=== PATIENT | female | born 1975 | race Caucasian/White ===

== ENCOUNTER 2024-12-10 13:00 | Outpatient (AMB) | payer OTHER, SELFPAY ==
--- OUTSIDE RECORDS SUMMARY | 2024-12-10 13:02 | XMS_ITS | Patient Health Record ---
Author Organization [facility] Address [address] [place] [address] Support Name Relationship Address Phone TAMEKA LOZA Guarantor Unknown [phone] Reason For Referral No Information Medications Medication SIG (Take, Route, Fr equency, Duration) Notes Start Date End Date Status Claritin 10 MG 1 ORAL daily for -3 Johnnie-MJ 03/09/2012 Active Kariva 0.15-0.02/0.01 1 ORAL daily for -3 Johnnie-MJ 03/09/20 12 Active Multivitamins 1 ORAL daily for -3 Johnnie-MJ 03/09/2012 Active Problems Problem Type SNOMED Code ICD Code Onset Dates Problem Status W/U Status Risk Notes Problem Hyperlipidemia (75605681) Other and unspecified hyperlipidemia (272.4) Active confirmed Major Problem Benign essential hypertension (3621309) Essential hypertension, benign (401.1) Active confirmed Major Problem Occlusion of cerebral artery (disorder) (80055495) Unspecified cerebral artery occlusion without mention of cerebral infarction (434.90) Active confirmed Major Problem Abnormal vaginal bleeding (735561910) Other disorder of menstruation and other abnormal bleeding from female genital tract (626.8) Active confirmed Diag Problem Menopausal symptom (65022014) Symptomatic menopausal or female climacteric states (627.2) Active confirmed Major Problem Gynecological examination normal (183663215201733) Routine gynecological examination (V72.31) Active confirmed Major Problem Screening for malignant neoplasm of colon (423965941) Special screening for malignant neoplasms, colon (V76.51) Active confirmed Major Plan Of Treatment No Information Insurance Providers Payer Name Payer Address Payer Phone Subscriber Number Group Number Insured Name Patient Relationship to Insured Coverage Start Date Coverage End Date [facility] [address] [place] [address] [id number] RICKIE LOZA Spouse - patient is the spouse of the insured 2
--- NOTE | 2024-12-10 13:15 | MHC.PC.OV ---
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 Intake Note: new pt established care Combination Welder Required: No Is last menstrual period known: Yes Last menstrual period: 12/10/24 Post menopausal: No Patient : No Allergies mepivacaine Allergy (Intermediate, Verified 12/10/24 13:27) Facial Swelling Medication List - Last Reconciled 12/10/24 by Kelby Robin CNP No Known Home Meds Tobacco use date assessed: 12/10/24 Dental Screening Dental Screen Date: 12/10/24 Did you have a dental visit in the last 12 months?: Yes Did you have a dental problem in the last 6 months where you did not have access to dental care?: No Was dental information given to patient?: No HPI HPI Comments History of Present Illness Details 49-year-old female presents to establish care Prior PCP? - Dr. Sorto, [facility], [place], [place] Last office visit/CPE/labs - Over 2 years ago Acute issue(s) - Elevated blood pressure. Notes history of preeclampsia and elevated BP reads at providers' offices. Does not recall her last recorded elevated blood pressure Medications - Albuterol inhaler 4-6 hours PRN - Epi pen Allergy - White face hornet (reaction - swelling, itching) Past Medical History - Asthma -GERD - Sinusitis - Preeclampsia (last 1999) Surgical History - Cholecystectomy Family History - Dad: Asthma, cardiovascular disease, mental illness, hypertension, substance abuse - Mom: Hypertension - MGM: Diabetes - PGM: Diabetes - PGF: Cardiovascular disease Social History - Nonsmoker. Does not vape. Does not drink alcohol. Denies recreational drug use - Has been making healthy dietary choices. Exercises routinely. Generally sleep well Health maintenance - Last eye exam was several years ago: Refer to Ophthalmology for routine eye exam - Last dental visit was 6 months ago - Last tetanus vaccine was probably in 2020. Old medical record not available. Will review record once received and update as needed - Has not been vaccinated for the flu this season; declines vaccination - She has not been vaccinated for pneumonia or shingles. Recommend pneumonia and shingles vaccines. She may get the vaccines from her local pharmacy - Last pap smear test was probably [address] Parker, CONVENTION SERVICES MANAGER, [place]. Requests a new CONVENTION SERVICES MANAGER. Referred [place] [facility] [place] for a pap smear test - Last mammogram was probably 3 years ago with with her CONVENTION SERVICES MANAGER. Mammogram ordered - She has never had a colonoscopy. She prefers Cologuard at this time due to feeling ill for a few days following anesthesia. Cologuard order [facility] Medical History (Updated 12/10/24 @ 15:12 by Kelby Robin CNP) Pre-eclampsia GERD (gastroesophageal reflux disease) Sinusitis Asthma Surgical History (Updated 12/10/24 @ 13:27 by Israel Finley CMA) History of cholecystectomy Family History (Updated 12/10/24 @ 13:31 by Israel Finley CMA) Father Substance abuse FH: mental illness Asthma High blood pressure Cardiovascular disease Psychiatric disorder Mother High blood pressure Maternal Grandmother Diabetes Paternal Grandmother Diabetes Paternal Grandfather Cardiovascular disease Social History Housing: House Patient Tobacco Use Status: Never used Tobacco e-Cigarette/Vaping Use: Never Used Second Hand Smoke Exposure: Yes service: No Current occupational status: employed 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 1. Little interest or pleasure in doing things: not at all 2. Feeling down, depressed, or hopeless: not at all 3. Trouble falling or staying asleep, or sleeping too much: not at all 4. Feeling tired or having little energy: not at all 5. Poor appetite or overeating: not at all 6. Feeling bad about yourself - or that you are a failure or have let yourself or your family down: not at all 7. Trouble concentrating on things, such as reading the newspaper or watching television: not at all 8. Moving or speaking so slowly that other people could have noticed. Or the opposite - being so fidgety or restless that you have been moving around a lot more than usual: not at all 9. Thoughts that you would be better off or of hurting yourself in some way: not at all Total score: 0 Depression Screening Interpretation: Negative Depression Screening Done: Yes Source: Developed by Drs. Sascha Felix, Morelia Aquino, Dat Madden and colleagues, with an educational nitin from [employer]. Thrive Questionnaire Date Thrive assessed: 12/07/24 I am a: Patient What is your living situation today?: I have a steady place to live Within the past 12 months, did the food you bought not last and you didn't have the money to get more?: Never true Within the past 12 months, did you worry whether your food would run out before you got money to buy more?: Never true Do you have trouble paying for medicines?: No Do you have trouble getting transportation to medical appointments?: No Do you have trouble paying your heating and electricity bill?: No Do you have trouble taking care of your child, family member or friend?: No Do you have trouble with day-to-day activities such as bathing, preparing meals, shopping, managing finances, etc.?: No Are you currently unemployed and looking for a job?: No Are you interested in more education?: No Please select the resources that you would like help with: None Currently or been in a relationship where the following occur: No concerns reported THRIVE Score: 0 AUDIT C Alcohol Use Questionnaire (AUDIT-C) 1. How often do you have a drink containing alcohol?: Never 3. How often do you have six or more drinks on one occasion?: Never Total Score: 0 Score Reviewed/Action Taken: Yes STEFAN-7 AMB Questionnaire STEFAN-7 Date STEFAN - 7 assessed: 12/10/24 Feeling nervous, anxious, or on edge: 0 = Not at all Not being able to stop or control worryin = Not at all Worrying too much about different things: 0 = Not at all Trouble relaxin = Not at all Being so restless that it is hard to sit still: 0 = Not at all Becoming easily annoyed or irritable: 0 = Not at all Feeling afraid as if something awful might happen: 0 = Not at all Total STEFAN-7 score (0-4 normal; 5-9 mild; 10-14 moderate; 15-21 severe): 0 Source: Developed by Drs. Sascha Felix, Morelia Aquino, Dat Madden and colleagues, with an educational nitin from [employer]. STEFAN-7 Assessment Billing STEFAN-7 Assessment Tool: STEFAN-7 Assessment 19002 ACT Questionnaire In the past 4 weeks, how much of the time did your asthma keep you from getting as much done at work, school or at home?: None of the time During the past 4 weeks, how often have you had shortness of breath?: Not at all During the past 4 weeks, how often did your asthma symptoms wake you up at night or earlier than usual in the morning?: Not at all During the past 4 weeks, how often have you had to use your rescue inhaler or nebulizer medication?: Not at all How would you rate your asthma control during the past 4 weeks?: Well controlled ACT Interpretation: Negative Score: 24 Review of Systems Const Details: Denies chills, Denies fatigue, Denies fever(s), Denies headache(s) and Denies weakness HEENT Denies change in vision, Denies dizziness, Denies headache(s), Denies hearing loss, Denies nasal congestion, Denies sinus pain, Denies sinus pressure and Denies sore throat Card Denies chest pain, Denies lightheadedness, Denies dyspnea and Denies other (palpitations) Resp Denies cough, Denies dyspnea and Denies wheezing GI Denies abdominal pain, Denies melena, Denies hematochezia, Denies change in bowel habits, Denies dyspepsia and Denies nausea Denies hematuria and Denies dysuria Musc Denies abnormal gait, Denies myalgias, Denies arthralgias, Denies numbness and Denies tingling Skin/Breast Denies rash, Denies unusual bruising and Denies wounds Neuro Denies abnormal gait, Denies dizziness, Denies headache(s), Denies memory loss, Denies numbness, Denies Sensory deficit (Neuro), Denies tingling and Denies weakness Psych Denies anxiety, Denies depression and Denies memory loss Endo Denies cold intolerance, Denies fatigue, Denies heat intolerance, Denies polydipsia and Denies polyuria Isrrael/Lymph Denies easy bleeding and Denies easy bruising Aller/Immun Denies wheezing Physical exam (Primary Care) Vital Signs: Last Vital Signs Temp 98.8 F 12/10/24 13:33 Pulse 108 H 12/10/24 14:21 Resp 16 12/10/24 13:33 BP 150/80 H 12/10/24 13:33 Pulse Ox 99 12/10/24 13:33 Oxygen Delivery Method Room Air 12/10/24 13:33 BMI result Body Mass Index 27.0 Tobacco/Smoking Status: Tobacco use Status Tobacco use date assessed 12/10/24 12/10/24 13:29 Patient Tobacco Use Status Never used Tobacco 12/10/24 13:29 e-Cigarette/Vaping Use Never Used 12/10/24 13:29 PHQ-9: PHQ-9 Score PHQ-9: Total score 0 12/10/24 14:45 Depression Screening Interpretation: Negative Thrive Assessment: Date of Thrive Assessment Date Thrive assessed 12/07/24 12/10/24 13:17 Currently or been in a relationship where the following occur: No concerns reported Const Other: General: no acute distress, well developed, alert and awake Nutritional Appearance: well nourished Orientation/consciousness: patient oriented x3 HENMT Head: Yes normocephalic and Yes atraumatic Ears: hearing grossly normal bilaterally and TM's normal bilaterally General nose exam: Normal external nose present and Normal nares present Mouth: Normal oral and palatal mucosa present and moist mucous membranes Teeth and gingiva: dentition normal Throat: Yes oropharynx normal Eyes Pupils: Equal, round and reactive pupils present and Pupil accommodation reflex normal EOM: EOMs intact bilaterally Neck Neck: Yes normal visual inspection, Yes no lymphadenopathy and Yes trachea midline Thyroid: Thyroid normal Carotids: no bruits Lymphatic: no lymphadenopathy noted Chest Chest palpation & inspection: normal inspection of the chest Resp Effort & Inspection: normal respiratory effort Auscultation: clear to auscultation bilaterally Cardio Rate: regular rate Rhythm: regular rhythm Heart sounds: S1 normal heart sound present, S2 normal heart sound present, no gallops, no murmurs and no rubs Bruits: no abdominal aortic bruits and no carotid bruits GI Palpation (GI): No Abdominal aortic bruit present, Soft to palpation, nontender, No hepatosplenomegaly present and No Rebound tenderness present Auscultation: normal bowel sounds General: Yes no CVA tenderness Back/Spine/Pelvis Back: no CVA tenderness Cervical Spine: cervical ROM normal and No Cervical spine tenderness Thoracic/Lumbar Spine: thoraco-lumbar ROM normal, No pain with thoraco-lumbar ROM, No thoracic spinal tenderness and No lumbar spinal tenderness Skin General: warm and dry. Normal skin color. Normal skin turgor Lesions: no lesions Rashes: no rashes Trauma: no lacerations or abrasions Wounds: no wounds Nails: normal Neuro General: patient oriented x3, gait normal and CN's II-XI intact bilaterally Cranial nerves: Yes Equal, round and reactive pupils present Cognition (Neuro): normal cognition Gait exam (Neuro): Normal gait present Motor exam (neuro): 5/5 motor strength present throughout Sensory Exam: No Sensory deficit (Neuro) Deep tendon reflexes (DTR's): Right patellar reflex intensity grade: 2+ and Left patellar reflex intensity grade: 2+ Extrem General: Yes normal to inspection, No edema and No calf tenderness Psych Appearance: grossly normal Affect: normal affect Attitude: cooperative Thought process: Normal thought process present Coding Level of Care Code New Pt Level 4 (57283) New Pt Prev Care 40-64y(61705) Diagnoses Normal physical examination, routine Z00.00 Hypertension I10 Asthma J45.909 Colon cancer screening Z12.11 Pap smear for cervical cancer screening Z12.4 Breast cancer screening by mammogram Z12.31 Vaccine counseling Z71.85 Eye exam, routine Z01.00 Laboratory tests ordered as part of a complete physical exam (CPE) Z00.00 Additional Codes Asthma Control Questionnaire - ACT Interpretation: Negative ([id number]) STEFAN-7 Assessment Billing - STEFAN-7 Assessment Tool: STEFAN-7 Assessment 63025 ([id number]) Assessment & Plan Assessment & Plan (1) Normal physical examination, routine: Code(s): Z00.00 - Encounter for general adult medical examination without abnormal findings Category: Medical Plan: No significant functional limitation noted. Healthy diet and routine exercise encouraged. Advised to get lab work done and follow-up in a week for hypertension and labs review. Return sooner with symptoms or concerns. Verbalized understanding and agreed with treatment plan. (2) Hypertension: Code(s): I10 - Essential (primary) hypertension Category: Medical Plan: Resting blood pressure is 150/80, above goal of less than 140/90. Heart rate is 108. She has history of preeclampsia. Her blood pressure is usually elevated at doctor's office. Her mom, dad, and sister have history of hypertension. Will start metoprolol 25 mg daily to target her blood pressure and heart rate; advised to take as prescribed. Instructed on the risks, benefits, and potential adverse reactions of the medication. Reports lightheaded/dizziness which has symptoms of hypotension. Also reports or go to the ED for symptoms of hypertension such as headache, visual disturbances or chest pain. Follow-up in 1 week or sooner with symptoms or concerns. Verbalized understanding and agreed with treatment plan. (3) Asthma: Code(s): J45.909 - Unspecified asthma, uncomplicated Category: Medical Plan: Well controlled asthma. ACT score is 24. Was new current treatment regimen. (4) Colon cancer screening: Code(s): Z12.11 - Encounter for screening for malignant neoplasm of colon Category: Medical Plan: She has never had a colonoscopy. She prefers a Cologuard test versus colonoscopy at this time due to illness following anesthesia. Cologuard test ordered. (5) Pap smear for cervical cancer screening: Code(s): Z12.4 - Encounter for screening for malignant neoplasm of cervix Category: Medical Plan: Last Pap smear test was 3 years ago. Referred to [facility] grapple skidder operator with noted preference for a female provider. (6) Breast cancer screening by mammogram: Code(s): Z12.31 - Encounter for screening mammogram for malignant neoplasm of breast Category: Medical Plan: Last mammogram was 3 years ago. Mammogram ordered. (7) Vaccine counseling: Code(s): Z71.85 - Encounter for immunization safety counseling Category: Medical Plan: She has not been vaccinated for pneumonia or shingles. Recommend pneumonia and shingles vaccines. She may get the vaccines from her local pharmacy. Verbalized understanding and agreed with the plan. (8) Eye exam, routine: Code(s): Z01.00 - Encounter for examination of eyes and vision without abnormal findings Category: Medical Plan: Last eye exam was several years ago. Refer to Ophthalmology for routine eye exam. (9) Laboratory tests ordered as part of a complete physical exam (CPE): Code(s): Z00.00 - Encounter for general adult medical examination without abnormal findings Category: Medical Plan: Fasting labs ordered as part of a complete physical exam. Advised to fast for at least 10 hours before getting labs drawn. May drink water Verbalized understanding and agreed with treatment plan. Orders: Orders Lipid Panel Today Z00.00 - Encounter for general adult medical examination without abnormal findings Microalbumin, Random (w Creat) Today Z00.00 - Encounter for general adult medical examination without abnormal findings Complete Blood Count Auto Diff Today Z00.00 - Encounter for general adult medical examination without abnormal findings Comprehensive [place]. Panel Fast Today Z00.00 - Encounter for general adult medical examination without abnormal findings TSH reflex Free T4 Today Z00.00 - Encounter for general adult medical examination without abnormal findings UA CC w/rflx Micro + Cult Today Z00.00 - Encounter for general adult medical examination without abnormal findings Referrals Ophthalmology Referral Z01.00 - Encounter for examination of eyes and vision without abnormal findings Cologuard Test Z12.11 - Encounter for screening for malignant neoplasm of colon, Z12.12 - Encounter for screening for malignant neoplasm of rectum SCHOOL SUPERINTENDENT Referral Z12.4 - Encounter for screening for malignant neoplasm of cervix Medications: New metoprolol tartrate 25 mg PO DAILY 30 days 30 tabs 3RF albuterol sulfate 90 mcg/actuation 2 puffs inhalation Q4-6H PRN 8.5 grams 3RF shortness of breath or wheezing epinephrine (EpiPen) May repeat dose x1 after 5-15 minutes. Go to the ED after first use. 0.3 mg (0.3 mL) IM Q10M PRN 2 ea 2RF anaphylaxis
[2024-12-10 13:33] VITALS: BP 150/80; PULSE 97; RESP 16; TEMP 37.1; O2SAT 99; BMI 27.0
[2024-12-10 14:21] VITALS: PULSE 108
== END 2024-12-10 14:17 | disposition home or self-care (01) ==
PROVIDERS: PCP Nurse Practitioner Family; Visit Provider Nurse Practitioner Family
DX: Z00.00 Encounter for general adult medical examination without abnormal findings (principal); I10 Essential (primary) hypertension; J45.909 Unspecified asthma, uncomplicated; Z12.11 Encounter for screening for malignant neoplasm of colon; Z12.31 Encounter for screening mammogram for malignant neoplasm of breast; Z71.85 Encounter for immunization safety counseling

== ENCOUNTER → 2024-12-10 13:00 | Outpatient (BNVA) | payer OTHER, SELFPAY | PROVIDERS: PCP Nurse Practitioner Family; Visit Provider Nurse Practitioner Family | DX: Z00.00 Encounter for general adult medical examination without abnormal findings (principal); I10 Essential (primary) hypertension; J45.909 Unspecified asthma, uncomplicated; Z71.85 Encounter for immunization safety counseling | CPT/HCPCS: 96127; 96160 ==

== ENCOUNTER 2024-12-13 08:01 | Outpatient (REF) | payer OTHER, SELFPAY ==
--- OUTSIDE RECORDS SUMMARY | 2024-12-13 08:05 | XMS_ITS | Patient Health Record ---
Author Organization [facility] Address [address] [place] [address] Support Name Relationship Address Phone TAMEKA LOZA Guarantor Unknown [phone] Reason For Referral No Information Medications Medication [...] Status W/U Status Risk Notes Problem Hyperlipidemia (86469917) Other and unspecified hyperlipidemia (272.4) Active confirmed Major Problem Benign essential hypertension (1388518) Essential hypertension, benign (401.1) Active confirmed Major Problem Occlusion of cerebral artery (disorder) (66686939) Unspecified cerebral artery occlusion without mention of cerebral infarction (434.90) Active confirmed Major Problem Abnormal vaginal bleeding (292874705) Other disorder of menstruation and other abnormal bleeding from female genital tract (626.8) Active confirmed Diag Problem Menopausal symptom (65334425) Symptomatic menopausal or female climacteric states (627.2) Active confirmed Major Problem Gynecological examination normal (553686861120598) Routine gynecological examination (V72.31) Active confirmed Major Problem Screening for malignant neoplasm of colon (496883550) Special screening for malignant neoplasms, colon (V76.51) Active confirmed Major Plan Of Treatment No Information Insurance Providers Payer Name Payer Address Payer Phone Subscriber Number Group Number Insured Name Patient Relationship to Insured Coverage Start Date Coverage End Date [facility] [address] [place] [address] [id number] RICKIE LOZA Spouse - patient is the spouse of the insured 2
[2024-12-13 11:41] LABS: Appearance Urine Clear; Color Urine Yellow; Glucose Urine UA Negative (Negative); Leukocyte Esterase Urine Negative (Negative); Nitrite Urine Negative (Negative); PH 6.5 (5.0-9.0); Specific Gravity - Urine 1.025 (1.005-1.025); Urine Blood Negative (Negative); Urine Ketones Negative (Negative); Urine Protein Negative (Neg-Trace)
[2024-12-13 11:43] LABS: MANUAL DIFF FLAG NO
[2024-12-13 11:48] LABS: Basophils Absolute Auto 0.1 X10*3/uL (0.0-0.2); Basophils Percent Auto 1.4 % (0-2); Eosinophils Absolute Auto 0.5 X10*3/uL (0.0-0.4); Eosinophils Percent Auto 6.3 % (0-4); Hematocrit 42.9 % (37.0-47.0); Hemoglobin 14.3 g/dl (12.0-16.0); Imm Gran Abs Auto 0.02 X10*3/uL (0.00-0.03); Imm Gran Pct Auto 0.3 % (0.0-0.4); Lymphocytes Absolute Auto 2.5 X10*3/uL (1.2-4.9); Lymphocytes Percent Auto 31.8 % (20-40); Mean Corpuscular HGB Conc 33.3 g/dl (31.0-35.0); Mean Corpuscular Hemoglobin 29.2 pg (27.0-33.0); Mean Corpuscular Volume 87.6 fL (80.0-98.0); Mean Platelet Volume 10.3 fL (9.4-12.3); Monocytes Absolute Auto 0.9 X10*3/uL (0.1-1.2); Monocytes Percent Auto 11.7 % (2-11); Neutrophils Absolute Auto 3.8 x10*3/uL (2.0-8.3); Neutrophils Percent Auto 48.5 % (45-73); Platelet Count 414 X10*3/uL (160-400); Red Cell Distribution Width 13.9 % (11.0-16.0); White Blood Count 7.9 X10*3/uL (4.8-10.8)
[2024-12-13 12:17] LABS: Creatinine Urine 96.05 mg/dL; Microalbum/Creatinine Ratio Ur 5.2 ug/mg cr (<30)
[2024-12-13 12:25] LABS: Alanine Aminotransferase 20 U/L (0-31); Alkaline Phosphatase 39 U/L (39-117); Anion Gap 10 (12-20); Aspartate Amino Transferase 27 U/L (5-31); Bilirubin Total 0.6 mg/dL (0.0-1.0); Blood Urea Nitrogen 18 mg/dL (9-16); Calcium 9.2 mg/dL (8.4-10.2); Carbon Dioxide 24 mmol/L (22-29); Chloride 107 mmol/L (96-108); Cholesterol 175 mg/dL (<200); Estimated Glomerular Filt Rate > 60; Glucose Fasting 90 mg/dL (60-99); HDL Cholesterol 44 mg/dL (>40); LDL Cholesterol Calculated 119 mg/dL (<100); Potassium 3.9 mmol/L (3.3-5.1); Sodium 137 mmol/L (135-145); TSH reflex Free T4 1.62 uIU/mL (0.32-4.0); Total Protein 7.5 g/dL (6.5-8.0); Triglycerides 63 mg/dL (<150)
== END 2024-12-13 08:02 | disposition home or self-care (01) ==
LOC: HO.WFDLDS 08:01
PROVIDERS: Visit Provider Nurse Practitioner Family
DX: Z00.00 Encounter for general adult medical examination without abnormal findings (principal); Z13.6 Encounter for screening for cardiovascular disorders
CPT/HCPCS: 36415; 80053; 80061; 81003; 82043; 82570; 84443; 85025

== ENCOUNTER 2024-12-19 15:00 | Outpatient (AMB) | payer OTHER, SELFPAY ==
--- NOTE | 2024-12-19 15:15 | MHC.PC.OV ---
Vital Signs 12/19/24 15:20 12/19/24 15:51 Height 5 ft 7 in Weight 171 lb BMI 26.8 BP 160/92 H 160/90 H Blood Pressure Location Rt brachial Rt brachial Position Sitting Sitting Respiration 16 Pulse 89 100 Pulse Source Pulse Oximeter Auscultation Temp 98.0 F Temp Source Oral Pulse Oximetry (%) 100 Oxygen Delivery Method Room Air Intake Visit Reasons: B/P check Intake Note: patient here for BP follow up Comptometrist Required: No Is last menstrual period known: Yes Last menstrual period: 12/18/24 Post menopausal: No Patient : No Allergies mepivacaine Allergy (Intermediate, Verified 12/19/24 15:45) Facial Swelling Medication List - Last Reconciled 12/19/24 by Kelby Robin CNP albuterol sulfate 90 mcg/actuation 2 puffs inhalation Q4-6H PRN epinephrine (EpiPen) 0.3 mg (0.3 mL) IM Q10M PRN metoprolol tartrate 25 mg PO DAILY 30 days Tobacco use date assessed: 12/19/24 Dental Screening Dental Screen Date: 12/19/24 Did you have a dental visit in the last 12 months?: Yes Did you have a dental problem in the last 6 months where you did not have access to dental care?: No Was dental information given to patient?: Patient has dentist HPI HPI Comments History of Present Illness Details 49-year-old female presents for hypertension and recent labs review follow-up. She admits to taking metoprolol as prescribed without adverse reactions. She has been making healthy dietary choices, including low-sodium diet. She offers no complaints and denies acute symptoms at this time. [facility] Medical History (Updated 12/19/24 @ 15:45 by Kelby Robin CNP) Pre-eclampsia GERD (gastroesophageal reflux disease) Sinusitis Asthma Surgical History (Updated 12/10/24 @ 13:27 by Israel Finley CMA) History of cholecystectomy Family History (Updated 12/10/24 @ 13:31 by Israel Finley CMA) Father Substance abuse FH: mental illness Asthma High blood pressure Cardiovascular disease Psychiatric disorder Mother High blood pressure Maternal Grandmother Diabetes Paternal Grandmother Diabetes Paternal Grandfather Cardiovascular disease Social History Housing: House Patient Tobacco Use Status: Never used Tobacco e-Cigarette/Vaping Use: Never Used Second Hand Smoke Exposure: Yes service: No Current occupational status: employed 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 Current occupational exposures/hazards: No Cognitive needs: No Hearing needs: No Vision needs: No Female Reproductive History Menstrual Date of last menstrual period: 12/18/24 Questionnaire Thrive Questionnaire Date Thrive assessed: 12/07/24 I am a: Patient What is your living situation today?: I have a steady place to live Within the past 12 months, did the food you bought not last and you didn't have the money to get more?: Never true Within the past 12 months, did you worry whether your food would run out before you got money to buy more?: Never true Do you have trouble paying for medicines?: No Do you have trouble getting transportation to medical appointments?: No Do you have trouble paying your heating and electricity bill?: No Do you have trouble taking care of your child, family member or friend?: No Do you have trouble with day-to-day activities such as bathing, preparing meals, shopping, managing finances, etc.?: No Are you currently unemployed and looking for a job?: No Are you interested in more education?: No Please select the resources that you would like help with: None Currently or been in a relationship where the following occur: No concerns reported THRIVE Score: 0 STEFAN-7 AMB Questionnaire STEFAN-7 Date STEFAN - 7 assessed: 12/10/24 Source: Developed by Drs. Sascha Felix, Morelia Aquino, Dat Madden and colleagues, with an educational nitin from [employer]. Review of Systems Const Details: Const Denies chills, Denies fatigue, Denies fever(s), Denies headache(s) and Denies weakness ENT Denies dizziness and Denies headache(s) Card Denies chest pain, Denies lightheadedness, Denies dyspnea and Denies other (Palpitations) Resp Denies cough, Denies dyspnea, Denies wheezing and Denies other ( shortness of breath) GI Denies abdominal pain, Denies melena, Denies hematochezia, Denies change in bowel habits, Denies dyspepsia and Denies nausea Denies hematuria and Denies dysuria Musc Denies abnormal gait, Denies myalgias, Denies arthralgias, Denies numbness and Denies tingling Skin/Breast Denies rash, Denies unusual bruising and Denies wounds Neuro Denies abnormal gait, Denies dizziness, Denies headache(s), Denies memory loss, Denies numbness, Denies Sensory deficit (Neuro), Denies tingling and Denies weakness Psych Denies anxiety, Denies depression, Denies memory loss Endo Denies cold intolerance, Denies fatigue, Denies heat intolerance, Denies polydipsia and Denies polyuria Aller/Immun Denies wheezing Physical exam (Primary Care) Vital Signs: Last Vital Signs Temp 98.0 F 12/19/24 15:20 Pulse 89 12/19/24 15:20 Resp 16 12/19/24 15:20 BP 160/92 H 12/19/24 15:20 Pulse Ox 100 12/19/24 15:20 Oxygen Delivery Method Room Air 12/19/24 15:20 BMI result Body Mass Index 26.8 Tobacco/Smoking Status: Tobacco use Status Tobacco use date assessed 12/19/24 12/19/24 15:25 Patient Tobacco Use Status Never used Tobacco 12/19/24 15:18 e-Cigarette/Vaping Use Never Used 12/19/24 15:18 Thrive Assessment: Date of Thrive Assessment Date Thrive assessed 12/07/24 12/19/24 15:18 Currently or been in a relationship where the following occur: No concerns reported Const Other: General: no acute distress and well developed Nutritional Appearance: well nourished Orientation/consciousness: patient oriented x3 HENMT Head: Yes normocephalic and Yes atraumatic Eyes General: appearance normal, both eyes and all related structures Pupils: Equal, round and reactive pupils present EOM: EOMs intact bilaterally Resp Effort & Inspection: normal respiratory effort Auscultation: clear to auscultation bilaterally Cardio Rate: regular rate Rhythm: regular rhythm Heart sounds: S1 normal heart sound present, S2 normal heart sound present, no gallops, no murmurs and no rubs GI Palpation (GI): No Abdominal aortic bruit present, Soft to palpation, nontender, No hepatosplenomegaly present and No Rebound tenderness present Auscultation: normal bowel sounds General: Yes no CVA tenderness Back/Spine/Pelvis Back: no CVA tenderness Cervical Spine: cervical ROM normal and No Cervical spine tenderness Thoracic/Lumbar Spine: thoraco-lumbar ROM normal, No pain with thoraco-lumbar ROM, No thoracic spinal tenderness and No lumbar spinal tenderness Extrem General: Yes normal to inspection, No edema and No calf tenderness Skin General: warm and dry. Normal skin color. Normal skin turgor Neuro General: patient oriented x3, gait normal and no focal neuro deficit Cranial nerves: Yes Equal, round and reactive pupils present Cognition (Neuro): normal cognition Gait exam (Neuro): Normal gait present Sensory Exam: No Sensory deficit (Neuro) Psych Appearance: grossly normal Affect: normal affect Attitude: cooperative Thought process: Normal thought process present Coding Level of Care Code Est Pt Level 3 (00791) Diagnoses Hypertension I10 Elevated LDL cholesterol level E78.00 Assessment & Plan Assessment & Plan (1) Hypertension: Code(s): I10 - Essential (primary) hypertension Category: Medical Plan: Resting blood pressure is 160/90, above goal of less than 140/90. Will increase lisinopril to 50 mg twice a day; advised to take as prescribed. Low-sodium diet and routine exercise encouraged. Follow-up in 1 week or sooner with symptoms or concerns. Verbalized understanding and agreed with treatment plan. (2) Elevated LDL cholesterol level: Code(s): E78.00 - Pure hypercholesterolemia, unspecified Category: Medical Plan: Recent lab results with unremarkable findings except for slightly elevated LDL level, 119. Advised to limit foods high in saturated fat and avoid foods high in trans fat. Routine exercise encouraged. Will monitor lipid panel level periodically or based on symptoms or concerns. Verbalized understanding and agreed with the treatment plan. Orders: Orders MM screening mammo BI Today Z12.31 - Encounter for screening mammogram for malignant neoplasm of breast Medications: New metoprolol tartrate 50 mg PO Q12H 30 days 60 tabs 3RF Discontinued metoprolol tartrate Discontinued Reason: Doctor's Order 25 mg PO DAILY 30 days 30 tabs 3RF
[2024-12-19 15:20] VITALS: BP 160/92; PULSE 89; RESP 16; TEMP 36.7; O2SAT 100; BMI 26.8
[2024-12-19 15:51] VITALS: BP 160/90; PULSE 100
--- OUTSIDE RECORDS SUMMARY | 2024-12-19 18:32 | XMS_ITS | Patient Health Record ---
Author Organization [facility] Address [address] [place] [address] Support Name Relationship Address Phone TAMEKA LOZA Guarantor Unknown [phone] Reason For Referral No Information Medications Medication [...] Status W/U Status Risk Notes Problem Hyperlipidemia (62562395) Other and unspecified hyperlipidemia (272.4) Active confirmed Major Problem Benign essential hypertension (1021494) Essential hypertension, benign (401.1) Active confirmed Major Problem Occlusion of cerebral artery (disorder) (09256263) Unspecified cerebral artery occlusion without mention of cerebral infarction (434.90) Active confirmed Major Problem Abnormal vaginal bleeding (745018842) Other disorder of menstruation and other abnormal bleeding from female genital tract (626.8) Active confirmed Diag Problem Menopausal symptom (29635853) Symptomatic menopausal or female climacteric states (627.2) Active confirmed Major Problem Gynecological examination normal (150673431720255) Routine gynecological examination (V72.31) Active confirmed Major Problem Screening for malignant neoplasm of colon (662926385) Special screening for malignant neoplasms, colon (V76.51) Active confirmed Major Plan Of Treatment No Information Insurance Providers Payer Name Payer Address Payer Phone Subscriber Number Group Number Insured Name Patient Relationship to Insured Coverage Start Date Coverage End Date [facility] [address] [place] [address] [id number] RICKIE LOZA Spouse - patient is the spouse of the insured 2
--- OUTSIDE RECORDS SUMMARY | 2024-12-19 18:32 | XMS_ITS | Data Portability ---
Author Organization [place] - [facility],, CLARA VINCENT MD Address [address] [facility] [address] [place] [address] Care Team Providers Care Corn Shucker Name Role Phone RUSLAN CALDERON Primary Care Provider [phone] Assessment No assessment recorded. Plan of Treatment Reminders Order Date Submit Date Provider Last Modified By Organization Details Last Modified Time Details Appointments None recorded. Lab pap test, thinprep, cervical 2016 017 [facility] Pathology [facility], Cytopathology Service, [address] [place], [address], 7 12:00:38 cytology, Pap smear 2012 013 [facility] Pathology [facility], Cytopathology Service, [address] [place], [address], 3 05:14:37 Referral None recorded. Procedures None recorded. Surgeries None recorded. Imaging MAMMO, screening , digital, bilateral 2016 017 [facility] (Mammography), [address] [place], [address], 7 11:12:00 Medication Orders Kariva (28) 0.15 mg-0.02 mg (21)/0.01 mg (5) tablet 2012 013 [email or web address] [facility], [address] [place], [address], 7 11:12:14 Patient TargetsNo targets recorded. Patient Instructions Encounter Date Encounter Id Patient Instructions Last Modified By Organization Details Last Modified Time 03/27/2012 [id number] We had a long discussion concerning her history of irregular bleeding between cycles.? ? ? This has been ongoing for? ? ?the past ten years, although usually it resolved when she was taking the OCP.? ? ? We discussed the posisble etiology of DUB, including endometiral or cervical polyp, fibroid, cervical cancer, endometiral cancer, or foreign body.? ? ? She had a normall pap smear and pelvic exam last month.? ? ? After a long discussion she elects to wait and see how she does with the Kariva, if the DUB resolves then no furhter testing or treatment is necessary at this time.? ? ? If the DUB persists then she will contact us and we electromatic typist order a pelvic sonogram for further information. She understands this plan and agrees.? ? ? She will obtain her old records for me to review, as well. Return for next annual exam if the DUB resolves, if not then return as needed. Face to face discussion 30 minutes. Not available 03/27/2012 13:25:45 04/09/2013 [id number] pelvic exam: francesca [email or web address] Not available 05/18/2013 05:14:37 Her BP is slight ly raised, she will follow up with her PCP, it may be due to weight gain, or the OCP.? ? ? We discussed that if she can not? ? ? get it to decrease then she will need? ? ?to stop the OCP, she is aware. Life stresses and responsibilitiy for her parents and in-laws discussed. She appears to be doing well. She is advised to get 1500 mg of calcium daily into her diet and supplements combined. There is a health benefit with adequate vitamin D supplementation to at least 400 units daily, daily aerobic exercise of 30 minutes, and stress reduction. Monthly self breast exam was taught, and stressed, and is advised to call if she discovers any new mass in the breast. ? ? ? Seat belt use for herself and passengers are advised. There are significant health benefits of becoming and remainig fit, with an optimal BMI. There is a potential reduction in chronic discomfort, diminished risks of hypertension, diabetes, and heart disease with the proper weight management. With a recommended BMI there can be improved mobility as she ages. Strategies to reach and maintain her target weight were discussed in detail. We reviewed the interaction of the OCP with antibiotics. We discussed the need to use a condom during antibiotic use and also for a minimum of three weeks following the use of antibiotics. We discused interactions with some herbal and OTC meds, such as [place] [facility] Possible side effects, and the stated risk of one in 10,000 to develop a blood clot/ DVT/PE were also discussed. Safe sex was stressed. All questions answered, rx to be called in to pharmacy. Not available 04/09/2013 11:43:40 05/11/2017 [id number] breast self-exam : care instructions [email or web address] Not available 05/11/2017 12:02:21 She is here for annual exam, is doing well. 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 Using condoms for control, does not want any other form of bc. considering vasectomy. Baseline mammo ordered. she has not been here in 4 years, has not had any engraver copperplate problems. She did have her gallbladder out in the interim. She has a 17 year old daughter, after she goes to college she will have a lot more free time. She declines rectal, advised to get 3 card guiac kit from PCP instead. She appears to be doing well. She is advised to get 1500 mg of calcium daily into her diet and supplements combined. We discussed the benefits of adequate vitamin D supplementation to at least 400 units daily, daily aerobic exercise of 30 minutes, and stress reduction. Monthly self breast exam was taught, and stressed, and is advised to call if she discovers any new mass in the breast. Seat belt use for herself and passengers advised. The significant health benefits of becoming and remainig fit, with an optimal BMI, were also discussed. We discussed the potential reduction in chronic discomfort, the diminished risks of hypertension, diabetes, and heart disease with the proper weight management, and improved mobility as she ages. Strategies to reach and maintain her target weight wer discussed in detail, all questions answered. Not available 05/11/2017 11:52:29 Reason for Referral None Reported. Results Created Date Observation Date Name Description Value Unit Range Abnormal Flag Note LastModifiedBy Organization Detail LastModifiedTime 04/09/20 13 04/09/2013 pap1c ase uww9pway thinp rep Pap and cell block : atypi moni squam ous cells of undet ermin ed signi fican ce (ASCU S). resul ts of HPV: high risk: not detec jasmine (sero types 16,18 ,31,3 3,35, 39,45 ,51,5 2,56, 58,59 ,68) cheli pires , [place](as cp) (case obie iam 04 12 2013) vidhya hodges M.D. (case elect zoey tovar clarisa d 04 18 2013) adequ acy: satis facto ry. endoc ervic al trans forma tion zone compo nent prese nt. sourc e: thinp rep Pap, cervi moni, image d clini moni infor matio n: HPV if diagn osis of ASCUS . * cytop athol ogy servi nita provi ded by [facility]ad [facility] at the above addre ss. Not Available [facility], Cytopathology Service [address] [place], [address], 04/18/2013 10:01:22 05/11/20 17 05/11/2017 pap, LB [id number] ThinP rep Pap, Image d: NEGAT BRUNA FOR SQUAM OUS INTRA EPITH ELIAL TERRENCE Harding AND MARGIE MATHEW . Maynor carroll, CT( CP) (Case elect zoey tovar clarisa d 05 13 2017) ADEQU ACY: Satis facto ry. Endoc ervic al/tr ansfo rmati on zone compo nent prese nt. SOURC E: ThinP rep Pap HPV IF Ascus : Refle x 16 and 18, Cervi moni, Image d: CLINI MONI INFOR MATIO N: HPV If Diagn osis of ASCUS . LAST PAP ASCUS WITH HPV Z12.4 Not Available [facility], Cytopathology Service [address] [place], [address], 05/13/2017 12:00:38 05/27/20 17 05/27/2017 MAMMO , scree lana, digit al, bilat eral No observ ation [facility] ed. [email or web address] [address] [place], [address], 05/27/2017 13:05:34 06/09/20 17 06/09/2017 US, breas t No observ ation record ed. [facility]osit Imaging Dept [address] [place], [address], 06/10/2017 09:32:55 06/09/20 17 06/09/2017 MAMMO , diagn ostic , digit al, unila teral No observ ation record ed. [facility] Imaging Dept [address] [place], [address], 06/10/2017 09:32:55 06/22/20 17 06/22/2017 ultra sound guide d core biops y (PROC ) No observ ation record ed. [facility] (Mammography) [address] [place], [address], 06/24/2017 11:58:19 Result Notes None recorded. Problems Name Problem SNOMED Code Status Onset Date Resolution Date Notes Provider Name and Address Organization Details Recorded Time Oligoovulator y dysfunctional uterine bleeding 588001191 Active Not Available [facility] 3 03:01:03 Problem Notes None recorded. Procedures Surgical History Date Name Laterality Status Provider Name and Address Organization Details Recorded Time 05/25/20 16 Cholecystectomy completed Suzy Cobian in [facility], 05/11/2017 11:15:55 10/24/19 00 Caesarean Section completed Suzy Cobian in [facility], 03/27/2012 11:14:11 Imaging Results Imaging Date Name Status LastModified by Organiz [facility]on [facility] Details LastModified Time 05/27/2017 MAMMO, screening, digital, bilateral completed [facility] Diagnosit Imaging Dept [address] [place], [address], 05/27/2017 13:05:34 06/09/2017 US, breast completed [facility] [address] [place], [address], 06/10/2017 09:32:55 06/09/2017 MAMMO, diagnostic, digital, unilateral completed [facility] [address] [place], [address], 06/10/2017 09:32:55 06/22/2017 ultrasound guided core biopsy (PROC) [facility] [address] [place], [address], 06/24/2017 11:58:19 Procedure Notes None recorded. Medical Equipment None Reported. Allergies Allergen ID Allergen Name Allergen Category Reaction Reaction Severity Criticality Documentation Date Start Date Code Code System Note Provider Name and Address Organization Details Recorded Time procaine hydrochlo ride medicatio n facial swelling Not available Not available 05/11/2017 14470 8 RxNorm Suzy cantrell [place] [facility], 7 11:10:46 Medications Name Sig Start Date Stop Date Status Note LastModified by Organization Details LastModified Time azurette tab 28 day 05/11 completed Not Available Not Available Not Available ciprofloxacn tab 500mg active Not Available Not Available No t Available penicilln vk tab 500mg active Not Available Not Available No t Available cyclobenzapr ine 10 mg tablet 05/11 completed Not Available Not Available Not Available lorazepam 0.5 mg tablet 05/11 completed Not Available Not Available Not Available lisinopril 5 mg tablet 05/11 completed Not Available Not Available Not Available Kariva (28) 0.15 mg-0.02 mg (21)/0.01 mg (5) tablet Take 1 tablet every day by oral route. 05/11 completed Not Available Not Available Not Available Claritin active Not Available Not Avai lable Not Available Kariva (28) active take on daily Not Available Not Available Not Available Daily Multi-Vitami n active Not Available Not Available Not Available Vitals Date Recorded Heart rate Body height Body weight Body mass index (BMI) Heart rate Systolic blood pressure Diastolic blood pressure Systolic blood pressure Diastolic blood pressure Provider Name and Address Organization Details Last Updated DateTime 3 108 /min 167.64 cm 56367.3 11717 g 23.9 kg/m2 99 /min 140 mm[Hg] 96 mm[Hg] 157 mm[Hg] 91 mm[Hg] Yaquelin Velezyovany Cobian in [facility], 3 11:09:41 Date Recorded Body height Body weight Body mass index (BMI) Heart rate Systolic blood pressure Diastolic blood pressure Provider Name and Address Organization Details Last Updated DateTime 2 170.18 cm 25795.3 0128 g 22.6 kg/m2 94 /min 146 mm[Hg] 92 mm[Hg] Suzy Cobian in [facility], 2 11:32:07 Date Recorded Body weight Body mass index (BMI) Body height Heart rate Systolic blood pressure Diastolic blood pressure Provider Name and Address Organization Details Last Updated DateTime 7 62795.7 2 g 25.4 kg/m2 167.64 cm 98 /min 157 mm[Hg] 96 mm[Hg] Suzy Cobian in [facility], 7 11:11:15 Social History Question Answer Notes LastModified by [employer] ion Details LastModified Time Tobacco Smoking Status Never Smoker Not Available [facility] 08/26/2020 03:19:42 What Is Your Level Of Alcohol Consumption? Occasional [id number] Information not available 08/26/2020 What Is Your Level Of Caffeine Consumption? Moderate [id number] Information not available 08/26/2020 What Type Of Diet Are You Following? REGULAR [id number] Information not available 08/26/2020 Which Illicit Or Recreational Drugs Have You Used? None [id number] Information not available 08/26/2020 Do You Reside In Or Have You Traveled To An Area Where Ebola Virus Transmission Is Active? 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 0 Information not available 05/11/2017 High Number Of Sexual Partners No Information not available 05/11/2017 To Which Gender Do You Self-identify? Female [email or web address] Information not available 05/11/2017 Marital Status allen Informatio n not available 03/27/2012 Are You Sexually Active? Yes [id number] Information not available 08/26/2020 How Much Tobacco Do You Smoke? No [id number] Information not available 08/26/2020 General Stress Level Medium Information not available 05/11/2017 Have You Recently (within The Last 12 Weeks, Or During A Current ) Traveled To Or Lived In A Zika-affected Area? No Information not available 05/11/2017 Sex: Unknown Functional Status Question Answer Note LastModified by Organization D etails LastModified Time What is your exercise level? Moderate [id number] Information not available 08/26/2020 Mental Status None recorded. Family History Relationship Description Onset Age of this Age Resolved Age Notes LastModified by Organization Details LastModified Time Father Heart disease previo usly record ed as Heart Proble m [id number] Not available 08/12/2013 03:00:58 Medical History Condition Response Anesthesia complications N High Blood Pressure N Candidate for MyRisk panel N Autoimmune Condition N Kidney or Bladder Problems N Thyroid Problems N Depression N Lung Disease N GI Problems N Defects or Inherited Disease N History of Ovarian Cancer N Anemia N History of Breast Cancer N GINA exposure N BRCA testing in past N Osteopenia N Psychiatric Illness N Anxiety Disorder N Diabetes N Arthritis N Headaches or Migraines N Infertility N Asthma Y History of Cancer N Endometriosis N Hepatitis N Heart Disease N Hypertension N Osteoporosis N Gynecological History Statement/Question Response Dysmenorrhea Y Flow Moderate Date of LMP 04/20/2017 Frequency of Cycle (Q days) 28 Menses Monthly Y Duration of Flow (days) 5 Age at Menarche 13 Current Control Method Condoms Age at First Child 24 Obstetrics History GPAL:G 1 P 1 0 0 1 Type Value Full Term 1 Living 1 Total 1 Immunizations Vaccine Type Date Status Note Provider Mirza barney and Address Organization Details Recorded Time influenza, [id number] 1 completed Clara Vincent MD [address] [facility],[address], [place], [address], [place] [facility], 03/27/2012 11:56:27 Influenza, split virus, quadrivalent, preservative 6 completed Suzy cantrell [place] [facility], 05/11/2017 11:12:59 Past Encounters Encounter ID Performer Location Encounter Start Date Encounter Closed Date Diagnosis/Indication Diagnosis SNOMED-CT Code Diagnosis ICD10 Code Diagnosis Note [id number] CLARA VINCENT MD [address] [place] [address] 03/27/2012 10:52:24 03/27/2012 14:28:14 [id number] Suzy VINCENT MD [address] [place] [address] 04/09/2013 09:52:36 04/09/2013 13:05:08 [id number] MD CLARA Valerio MD [address] [facility] [place] [address] 05/11/2017 10:59:16 05/11/2017 11:58:04 Specialized medical examination 97259363 Z01.419 Screening mammography 24 137256 Z12.31 Health Concerns Section Related Observation LastModified by Organization Detai ls LastModified Time None Recorded Concern Status LastModified by Organization Details LastModified Time None Recorded Advance Directives Directive None Recorded Payers Encounter Date Sequence Insurance Name Policy Number Policy Clark Covered Member ID Clark Member ID Guarantor Name 03/27/2012 1 [facility] [id number] Jordon Merida [id number] Ashtyn Merida 04/09/2013 1 [facility] [id number] Jordon Merida [id number] Ashtyn Merida 05/11/2017 1 [place]: [facility] [id number] Jordon Fuad [id number] Ashtyn Merida Notes Date Note Type Note Provider Name and Address Organization Details Recorded Time 05/11/2017 text/html She is here for annual exam, is doing well. 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 Using condoms for control, does not want any other form of bc. she has not been here in 4 years, has not had any engraver copperplate problems. She did have her gallbladder out in the interim. She has a 17 year old daughter, after she goes to college she will have a lot more free time. Clara Vincent MD [address] [facility],[address], [place], [address], [place] - [facility], 05/11/2017 11:53:08 OBGyn Episode No OBEpisode recorded.
== END 2024-12-19 16:07 | disposition home or self-care (01) ==
PROVIDERS: PCP Nurse Practitioner Family; Visit Provider Nurse Practitioner Family
DX: I10 Essential (primary) hypertension (principal); E78.00 Pure hypercholesterolemia, unspecified

== ENCOUNTER 2024-12-27 15:01 | Outpatient (AMB) | payer OTHER, SELFPAY ==
--- NOTE | 2024-12-27 15:03 | MHC.PC.OV ---
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 Required: No Is last menstrual period known: Yes Last menstrual period: 12/19/24 Post menopausal: No Patient : No Allergies mepivacaine Allergy (Intermediate, Verified 12/27/24 15:15) Facial Swelling Medication List - Last Reconciled 12/27/24 by Kelby Robin CNP albuterol sulfate 90 mcg/actuation 2 puffs inhalation Q4-6H PRN epinephrine (EpiPen) 0.3 mg (0.3 mL) IM Q10M PRN metoprolol tartrate 50 mg PO Q12H 30 days Tobacco use date assessed: 12/27/24 Dental Screening Dental Screen Date: 12/27/24 Did you have a dental visit in the last 12 months?: Yes Did you have a dental problem in the last 6 months where you did not have access to dental care?: No Was dental information given to patient?: Patient has dentist HPI HPI Comments History of Present Illness Details 49-year-old female presents for hypertension follow-up. She admits to taking her medications as prescribed without adverse reactions. She has been making healthy dietary choices, including low salt. She offers no complaints and denies acute symptoms at this time. [facility] Medical History (Updated 12/19/24 @ 15:45 by Kelby Robin CNP) Pre-eclampsia GERD (gastroesophageal reflux disease) Sinusitis Asthma Surgical History (Updated 12/10/24 @ 13:27 by NISREEN Mcconnell) History of cholecystectomy Family History (Updated 12/10/24 @ 13:31 by NISREEN Mcconnell) Father Substance abuse FH: mental illness Asthma High blood pressure Cardiovascular disease Psychiatric disorder Mother High blood pressure Maternal Grandmother Diabetes Paternal Grandmother Diabetes Paternal Grandfather Cardiovascular disease Social History Housing: House Patient Tobacco Use Status: Never used Tobacco e-Cigarette/Vaping Use: Never Used Second Hand Smoke Exposure: Yes Patient : No service: No Current occupational status: employed 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 Current occupational exposures/hazards: No Cognitive needs: No Hearing needs: No Vision needs: No Female Reproductive History Menstrual Date of last menstrual period: 12/19/24 Questionnaire Thrive Questionnaire Date Thrive assessed: 12/07/24 I am a: Patient What is your living situation today?: I have a steady place to live Within the past 12 months, did the food you bought not last and you didn't have the money to get more?: Never true Within the past 12 months, did you worry whether your food would run out before you got money to buy more?: Never true Do you have trouble paying for medicines?: No Do you have trouble getting transportation to medical appointments?: No Do you have trouble paying your heating and electricity bill?: No Do you have trouble taking care of your child, family member or friend?: No Do you have trouble with day-to-day activities such as bathing, preparing meals, shopping, managing finances, etc.?: No Are you currently unemployed and looking for a job?: No Are you interested in more education?: No Please select the resources that you would like help with: None Currently or been in a relationship where the following occur: No concerns reported THRIVE Score: 0 STEFAN-7 AMB Questionnaire STEFAN-7 Date STEFAN - 7 assessed: 12/10/24 Source: Developed by Drs. Sascha Felix, Morelia Aquino, Dat Madden and colleagues, with an educational nitin from [employer]. Review of Systems Const Details: Const Denies chills, Denies fatigue, Denies fever(s), Denies headache(s) and Denies weakness ENT Denies dizziness and Denies headache(s) Card Denies chest pain, Denies lightheadedness, Denies dyspnea and Denies other (Palpitations) Resp Denies cough, Denies dyspnea, Denies wheezing and Denies other ( shortness of breath) GI Denies abdominal pain, Denies melena, Denies hematochezia, Denies change in bowel habits, Denies dyspepsia and Denies nausea Denies hematuria and Denies dysuria Musc Denies abnormal gait, Denies myalgias, Denies arthralgias, Denies numbness and Denies tingling Skin/Breast Denies rash, Denies unusual bruising and Denies wounds Neuro Denies abnormal gait, Denies dizziness, Denies headache(s), Denies memory loss, Denies numbness, Denies Sensory deficit (Neuro), Denies tingling and Denies weakness Psych Denies anxiety, Denies depression, Denies memory loss Endo Denies cold intolerance, Denies fatigue, Denies heat intolerance, Denies polydipsia and Denies polyuria Aller/Immun Denies wheezing Physical exam (Primary Care) Vital Signs: Last Vital Signs Temp 98.2 F 12/27/24 15:07 Pulse 67 12/27/24 15:07 Resp 16 12/27/24 15:07 BP 173/97 H 12/27/24 15:07 Pulse Ox 96 12/27/24 15:07 Oxygen Delivery Method Room Air 12/27/24 15:07 BMI result Body Mass Index 27.1 Tobacco/Smoking Status: Tobacco use Status Tobacco use date assessed 12/27/24 12/27/24 15:10 Patient Tobacco Use Status Never used Tobacco 12/27/24 15:10 e-Cigarette/Vaping Use Never Used 12/27/24 15:10 Thrive Assessment: Date of Thrive Assessment Date Thrive assessed 12/07/24 12/27/24 15:10 Currently or been in a relationship where the following occur: No concerns reported Const Other: General: no acute distress and well developed Nutritional Appearance: well nourished Orientation/consciousness: patient oriented x3 HENMT Head: Yes normocephalic and Yes atraumatic Eyes General: appearance normal, both eyes and all related structures Pupils: Equal, round and reactive pupils present EOM: EOMs intact bilaterally Resp Effort & Inspection: normal respiratory effort Auscultation: clear to auscultation bilaterally Cardio Rate: regular rate Rhythm: regular rhythm Heart sounds: S1 normal heart sound present, S2 normal heart sound present, no gallops, no murmurs and no rubs GI Palpation (GI): No Abdominal aortic bruit present, Soft to palpation, nontender, No hepatosplenomegaly present and No Rebound tenderness present Auscultation: normal bowel sounds General: Yes no CVA tenderness Back/Spine/Pelvis Back: no CVA tenderness Cervical Spine: cervical ROM normal and No Cervical spine tenderness Thoracic/Lumbar Spine: thoraco-lumbar ROM normal, No pain with thoraco-lumbar ROM, No thoracic spinal tenderness and No lumbar spinal tenderness Extrem General: Yes normal to inspection, No edema and No calf tenderness Skin General: warm and dry. Normal skin color. Normal skin turgor Neuro General: patient oriented x3, gait normal and no focal neuro deficit Cranial nerves: Yes Equal, round and reactive pupils present Cognition (Neuro): normal cognition Gait exam (Neuro): Normal gait present Sensory Exam: No Sensory deficit (Neuro) Psych Appearance: grossly normal Affect: normal affect Attitude: cooperative Thought process: Normal thought process present Coding Level of Care Code Est Pt Level 3 (13617) Diagnoses Hypertension I10 Assessment & Plan Assessment & Plan (1) Hypertension: Code(s): I10 - Essential (primary) hypertension Category: Medical Plan: Resting blood pressure is 140/90, slightly above goal of less than 140/90. Heart rate is 80. Continue current treatment regimen. Follow-up in 3 weeks or sooner with symptoms or concerns. Verbalized understanding and agreed with treatment plan.
[2024-12-27 15:07] VITALS: BP 173/97; PULSE 67; RESP 16; TEMP 36.8; O2SAT 96; BMI 27.1
[2024-12-27 15:24] VITALS: BP 140/90; PULSE 80
--- OUTSIDE RECORDS SUMMARY | 2024-12-27 18:34 | XMS_ITS | Patient Health Record ---
Author Organization [facility] Address [address] [place] [address] Support Name Relationship Address Phone TAMEKA LOZA Guarantor Unknown [phone] Reason For Referral No Information Medications Medication [...] Status W/U Status Risk Notes Problem Hyperlipidemia (72142410) Other and unspecified hyperlipidemia (272.4) Active confirmed Major Problem Benign essential hypertension (4043488) Essential hypertension, benign (401.1) Active confirmed Major Problem Occlusion of cerebral artery (disorder) (13302105) Unspecified cerebral artery occlusion without mention of cerebral infarction (434.90) Active confirmed Major Problem Abnormal vaginal bleeding (885138570) Other disorder of menstruation and other abnormal bleeding from female genital tract (626.8) Active confirmed Diag Problem Menopausal symptom (39641879) Symptomatic menopausal or female climacteric states (627.2) Active confirmed Major Problem Gynecological examination normal (450167082361806) Routine gynecological examination (V72.31) Active confirmed Major Problem Screening for malignant neoplasm of colon (270464328) Special screening for malignant neoplasms, colon (V76.51) Active confirmed Major Plan Of Treatment No Information Insurance Providers Payer Name Payer Address Payer Phone Subscriber Number Group Number Insured Name Patient Relationship to Insured Coverage Start Date Coverage End Date [facility] [address] [place] [address] [id number] RICKIE LOZA Spouse - patient is the spouse of the insured 2
--- OUTSIDE RECORDS SUMMARY | 2024-12-27 18:34 | XMS_ITS | Data Portability ---
Author Organization [place] [facility],, CLARA VINCENT MD Address [address] [place] [address] Care Team Providers Care Optical Instrument Specialist Name Role Phone RUSLAN CALDERON Primary Care Provider [phone] Assessment No assessment recorded. Plan of Treatment Reminders Order Date Submit Date Provider Last Modified By Organization Details Last Modified Time Details Appointments None recorded. Lab pap test, thinprep, cervical 2016 017 [facility], Cytopathology Service, [address] [place], [address], 7 12:00:38 cytology, Pap smear 2012 013 [facility], Cytopathology Service, [address] [place], [address], 3 05:14:37 Referral None recorded. Procedures None recorded. Surgeries None recorded. Imaging MAMMO, screening , digital, bilateral 2016 017 [facility] (Mammography), [address] [place], [address], 7 11:12:00 Medication Orders Kariva (28) 0.15 mg-0.02 mg (21)/0.01 mg (5) tablet 2012 013 [email or web address], [address] [place], [address], 7 11:12:14 Patient TargetsNo targets recorded. Patient Instructions Encounter Date Encounter Id Patient Instructions Last Modified By Organization Details Last Modified Time 03/27/2012 [id number] We had a long discussion concerning her [...] then she will contact us and we muffler tender order a pelvic sonogram for further information. [...] to pharmacy. Not available 04/09/2013 11:43:40 05/11/2017 [id number] breast self-exam : care instructions [email or web address] Not available 05/11/2017 12:02:21 She is here for annual exam, is doing well. 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 Using condoms for control, does not want any other form of bc. considering vasectomy. Baseline mammo ordered. she has not been here in 4 years, has not had any executive creative director problems. She did have her gallbladder out [...] Detail LastModifiedTime 04/09/20 13 04/09/2013 pap1c ase [id number] thinp rep Pap and cell block : [...] at the above addre ss. Not Available [facility], Cytopathology Service [address] [place], [address], 04/18/2013 10:01:22 05/11/20 17 05/11/2017 pap, LB [id number] ThinP rep Pap, Image d: NEGAT BRUNA [...] PAP ASCUS WITH HPV Z12.4 Not Available [facility], Cytopathology Service [address] [place], [address], 05/13/2017 12:00:38 05/27/20 17 05/27/2017 MAMMO , scree lana, digit al, bilat eral No [email or web address] [address] [place], [address], 05/27/2017 13:05:34 06/09/20 17 06/09/2017 US, breas t No observ ation record ed. [facility] Imaging Dept [address] [place], [address], 06/10/2017 09:32:55 06/09/20 17 06/09/2017 MAMMO , diagn ostic , digit al, unila teral No observ ation record ed. [facility] [address] [place], [address], 06/10/2017 09:32:55 06/22/20 17 06/22/2017 ultra sound guide d core biops y (PROC ) No observ ation record ed. [facility] (Mammography) [address] [place], [address], 06/24/2017 11:58:19 Result Notes None recorded. Problems Name Problem SNOMED Code Status Onset Date Resolution Date Notes Provider Name and Address Organization Details Recorded Time Oligoovulator y dysfunctional uterine bleeding 040995617 Active Not Available [facility] 3 03:01:03 Problem Notes None recorded. Procedures Surgical History Date Name Laterality Status Provider Name and Address Organization Details Recorded Time 05/25/20 16 Cholecystectomy completed Suzy Cobian in [facility], 05/11/2017 11:15:55 10/24/19 00 Caesarean Section completed Suzy Cobian in [facility], 03/27/2012 11:14:11 Imaging Results Imaging Date Name Status LastModified by Organiz [facility] Details LastModified Time 05/27/2017 MAMMO, screening, digital, bilateral completed [facility] [address] [place], [address], 05/27/2017 13:05:34 06/09/2017 US, breast completed [facility] [address] [place], [address], 06/10/2017 09:32:55 06/09/2017 MAMMO, diagnostic, digital, unilateral completed [facility] [address] [place], [address], 06/10/2017 09:32:55 06/22/2017 ultrasound guided [facility] (PROC[facility] [address] [place], [address], 06/24/2017 11:58:19 Procedure Notes None recorded. Medical Equipment None Reported. Allergies Allergen ID Allergen Name Allergen Category Reaction Reaction Severity Criticality Documentation Date Start Date Code Code System Note Provider Name and Address Organization Details Recorded Time procaine hydrochlo ride medicatio n facial swelling Not available Not available 05/11/2017 84556 8 RxNorm Suzy cantrell [place] [facility], 7 11:10:46 Medications Name [...] Updated DateTime 3 108 /min 167.64 cm 30107.3 87612 g 23.9 kg/m2 99 /min 140 mm[Hg] 96 mm[Hg] 157 mm[Hg] 91 mm[Hg] Yaquelin Velezyovany Cobian in [facility], 3 11:09:41 Date Recorded Body height Body weight Body mass index (BMI) Heart rate Systolic blood pressure Diastolic blood pressure Provider Name and Address Organization Details Last Updated DateTime 2 170.18 cm 63070.3 0128 g 22.6 kg/m2 94 /min 146 mm[Hg] 92 mm[Hg] Suzy Cobian in [facility], 2 11:32:07 Date Recorded Body weight Body mass index (BMI) Body height Heart rate Systolic blood pressure Diastolic blood pressure Provider Name and Address Organization Details Last Updated DateTime 7 03906.7 2 g 25.4 kg/m2 167.64 cm 98 /min 157 mm[Hg] 96 mm[Hg] Suzy Cobian in [facility], 7 11:11:15 Social History Question Answer Notes LastModified by [employer] ion Details LastModified Time Tobacco Smoking Status Never Smoker Not Available [employer] 08/26/2020 03:19:42 What Is Your Level Of Alcohol Consumption? Occasional [id number] Information not available 08/26/2020 What Is Your Level Of Caffeine Consumption? Moderate [id number] Information not available 08/26/2020 What Type Of Diet Are You Following? REGULAR [id number] Information not available 08/26/2020 Which Illicit Or Recreational Drugs Have You Used? None [id number] Information not available 08/26/2020 Do You Reside In Or Have You Traveled To An Area Where Ebola Virus Transmission Is Active? 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 0 Information not available 05/11/2017 High Number Of Sexual Partners No Information not available 05/11/2017 To Which Gender Do You Self-identify? Female [email or web address] Information not available 05/11/2017 Marital Status allen Informatio n not available 03/27/2012 Are You Sexually Active? Yes [id number] Information not available 08/26/2020 How Much Tobacco Do You Smoke? No [id number] Information not available 08/26/2020 General Stress Level Medium Information not available 05/11/2017 Have You Recently (within The Last 12 Weeks, Or During A Current ) Traveled To Or Lived In A Zika-affected Area? No Information not available 05/11/2017 Sex: Unknown Functional Status Question Answer Note LastModified by Organization D etails LastModified Time What is your exercise level? Moderate [id number] Information not available 08/26/2020 Mental Status None recorded. Family History Relationship Description Onset Age of this Age Resolved Age Notes LastModified by Organization Details LastModified Time Father Heart disease previo usly record ed as Heart Proble m [id number] Not available 08/12/2013 03:00:58 Medical History Condition Response High Blood Pressure N Autoimmune Condition N Depression N History of Ovarian Cancer N Anxiety Disorder N Arthritis N Infertility N Kidney or Bladder Problems N Osteopenia N Asthma Y Hepatitis N Anesthesia complications N Candidate for MyRisk panel N Lung Disease N Defects or Inherited Disease N BRCA testing in past N History of Cancer N Endometriosis N Thyroid Problems N GI Problems N Anemia N History of Breast Cancer N GINA exposure N Psychiatric Illness N Diabetes N Headaches or Migraines N Heart Disease N Hypertension N Osteoporosis [...] Vaccine Type Date Status Note Provider Mirza barnye and Address Organization Details Recorded Time influenza, M0W4-4910 1 completed Clara Vincent MD [address], [place], [address], [place] [facility], 03/27/2012 11:56:27 Influenza, split virus, quadrivalent, preservative 6 completed Suzy cantrell [place] [facility], 05/11/2017 11:12:59 Past Encounters Encounter ID Performer Location Encounter Start Date Encounter Closed Date Diagnosis/Indication Diagnosis SNOMED-CT Code Diagnosis ICD10 Code Diagnosis Note [id number] CLARA VINCENT MD [address] [place] [address] 03/27/2012 10:52:24 03/27/2012 14:28:14 [id number] Suzy VINCENT MD [address] [place] [address] 04/09/2013 09:52:36 04/09/2013 13:05:08 [id number] MD CLARA Valerio MD [address] [place] [address] 05/11/2017 10:59:16 05/11/2017 11:58:04 Specialized medical examination 92046923 Z01.419 Screening mammography 24 673386 Z12.31 Health Concerns Section Related Observation LastModified by Organization Detai ls LastModified Time None Recorded Concern Status LastModified by Organization Details LastModified Time None Recorded Advance Directives Directive None Recorded Payers Encounter Date Sequence Insurance Name Policy Number Policy Clark Covered Member ID Clark Member ID Guarantor Name 03/27/2012 1 [facility] [id number] Jordon [place] [id number] Ashtyn [place] 04/09/2013 1 [facility] [id number] Jordon [place] [id number] Ashtyn [place] 05/11/2017 1 [place] [facility] [id number] Jordon [place]ida [id number] Ashtyn [place]iad Notes Date Note Type Note Provider Name and Address Organization Details Recorded Time 05/11/2017 text/html She is here for annual exam, is doing well. 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 Using condoms for control, does not want any other form of bc. she has not been here in 4 years, has not had any executive creative director problems. She did have her gallbladder out in the interim. She has a 17 year old daughter, after she goes to college she will have a lot more free time. Clara Vincent MD [address], [place], [address], [place] - [facility], 05/11/2017 11:53:08 OBGyn Episode No OBEpisode recorded.
== END 2024-12-27 15:30 | disposition home or self-care (01) ==
PROVIDERS: PCP Nurse Practitioner Family; Visit Provider Nurse Practitioner Family
DX: I10 Essential (primary) hypertension (principal)

== ENCOUNTER → 2024-12-27 15:01 | Outpatient (BNVA) | payer OTHER, SELFPAY | PROVIDERS: PCP Nurse Practitioner Family; Visit Provider Nurse Practitioner Family ==

== ENCOUNTER 2025-01-21 15:10 | Outpatient (AMB) | payer OTHER, SELFPAY ==
--- NOTE | 2025-01-21 15:14 | A.OFFPC_ITS ---
Vital Signs 01/21/25 15:18 01/21/25 15:31 Height 5 ft 7 in Weight 175 lb BMI 27.4 BP 166/87 H 150/90 H Blood Pressure Location Rt brachial Lt brachial Position Sitting Sitting Respiration 16 Pulse 80 84 Pulse Source Pulse Oximeter Auscultation Temp 98.0 F Temp Source Oral Pulse Oximetry (%) 100 Oxygen Delivery Method Room Air Intake Visit Reasons: 3 wks HTN Intake Note: patient here for 3wks follow up for HTN. College Counselor Required: No Is last menstrual period known: Yes Last menstrual period: 01/14/25 Post menopausal: No Patient : No Allergies mepivacaine Allergy (Intermediate, Verified 01/21/25 15:25) Facial Swelling Medication List - Last Reconciled 01/21/25 by Kelby Robin CNP albuterol sulfate 90 mcg/actuation 2 puffs inhalation Q4-6H PRN epinephrine (EpiPen) 0.3 mg (0.3 mL) IM Q10M PRN metoprolol tartrate 50 mg PO Q12H 30 days Tobacco use date assessed: 01/21/25 Dental Screening Dental Screen Date: 01/21/25 Did you have a dental visit in the last 12 months?: Yes Did you have a dental problem in the last 6 months where you did not have access to dental care?: No Was dental information given to patient?: Patient has dentist HPI HPI Comments History of Present Illness Details 49-year-old female presents for hyperten lloyd follow-up. She admits to taking her medications as prescribed without adverse reactions. She has been making healthy dietary choices, including low salt. She offers no complaints and denies acute symptoms at this time. [facility] Medical History (Updated 12/19/24 @ 15:45 by Kelby Robin CNP) Pre-eclampsia GERD (gastroesophageal reflux disease) Sinusitis Asthma Surgical History (Updated 12/10/24 @ 13:27 by NISREEN Mcconnell) History of cholecystectomy Family History (Updated 12/10/24 @ 13:31 by NISREEN Mcconnell) Father Substance abuse FH: mental illness Asthma High blood pressure Cardiovascular disease Psychiatric disorder Mother High blood pressure Maternal Grandmother Diabetes Paternal Grandmother Diabetes Paternal Grandfather Cardiovascular disease Social History Housing: House Patient Tobacco Use Status: Never used Tobacco e-Cigarette/Vaping Use: Never Used Second Hand Smoke Exposure: Yes service: No Current occupational status: employed 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 Current occupational exposures/hazards: No Cognitive needs: No Hearing needs: No Vision needs: No Female Reproductive History Menstrual Date of last menstrual period: 01/14/25 Questionnaire Thrive Questionnaire Date Thrive assessed: 12/07/24 I am a: Patient What is your living situation today?: I have a steady place to live Within the past 12 months, did the food you bought not last and you didn't have the money to get more?: Never true Within the past 12 months, did you worry whether your food would run out before you got money to buy more?: Never true Do you have trouble paying for medicines?: No Do you have trouble getting transportation to medical appointments?: No Do you have trouble paying your heating and electricity bill?: No Do you have trouble taking care of your child, family member or friend?: No Do you have trouble with day-to-day activities such as bathing, preparing meals, shopping, managing finances, etc.?: No Are you currently unemployed and looking for a job?: No Are you interested in more education?: No Please select the resources that you would like help with: None Currently or been in a relationship where the following occur: No concerns reported THRIVE Score: 0 STEFAN-7 AMB Questionnaire STEFAN-7 Date STEFAN - 7 assessed: 12/10/24 Source: Developed by Drs. Sascha Felix, Morelia Aquino, Dat Madden and colleagues, with an educational nitin from [employer]. Review of Systems Const Details: Const Denies chills, Denies fatigue, Denies fever(s), Denies headache(s) and Denies weakness ENT Denies dizziness and Denies headache(s) Card Denies chest pain, Denies lightheadedness, Denies dyspnea and Denies other (Palpitations) Resp Denies cough, Denies dyspnea, Denies wheezing and Denies other ( shortness of breath) GI Denies abdominal pain, Denies melena, Denies hematochezia, Denies change in bowel habits, Denies dyspepsia and Denies nausea Denies hematuria and Denies dysuria Musc Denies abnormal gait, Denies myalgias, Denies arthralgias, Denies numbness and Denies tingling Skin/Breast Denies rash, Denies unusual bruising and Denies wounds Neuro Denies abnormal gait, Denies dizziness, Denies headache(s), Denies memory loss, Denies numbness, Denies Sensory deficit (Neuro), Denies tingling and Denies weakness Psych Denies anxiety, Denies depression, Denies memory loss Endo Denies cold intolerance, Denies fatigue, Denies heat intolerance, Denies polydipsia and Denies polyuria Aller/Immun Denies wheezing Physical exam (Primary Care) Vital Signs: Last Vital Signs Temp 98.0 F 01/21/25 15:18 Pulse 80 01/21/25 15:18 Resp 16 01/21/25 15:18 BP 166/87 H 01/21/25 15:18 Pulse Ox 100 01/21/25 15:18 Oxygen Delivery Method Room Air 01/21/25 15:18 BMI result Body Mass Index 27.4 Tobacco/Smoking Status: Tobacco use Status Tobacco use date assessed 01/21/25 01/21/25 15:22 Patient Tobacco Use Status Never used Tobacco 01/21/25 15:16 e-Cigarette/Vaping Use Never Used 01/21/25 15:16 Thrive Assessment: Date of Thrive Assessment Date Thrive assessed 12/07/24 01/21/25 15:16 Currently or been in a relationship where the following occur: No concerns reported Const Other: General: no acute distress and well developed Nutritional Appearance: well nourished Orientation/consciousness: patient oriented x3 HENMT Head: Yes normocephalic and Yes atraumatic Eyes General: appearance normal, both eyes and all related structures Pupils: Equal, round and reactive pupils present EOM: EOMs intact bilaterally Resp Effort & Inspection: normal respiratory effort Auscultation: clear to auscultation bilaterally Cardio Rate: regular rate Rhythm: regular rhythm Heart sounds: S1 normal heart sound present, S2 normal heart sound present, no gallops, no murmurs and no rubs GI Palpation (GI): No Abdominal aortic bruit present, Soft to palpation, nontender, No hepatosplenomegaly present and No Rebound tenderness present Auscultation: normal bowel sounds General: Yes no CVA tenderness Back/Spine/Pelvis Back: no CVA tenderness Cervical Spine: cervical ROM normal and No Cervical spine tenderness Thoracic/Lumbar Spine: thoraco-lumbar ROM normal, No pain with thoraco-lumbar ROM, No thoracic spinal tenderness and No lumbar spinal tenderness Extrem General: Yes normal to inspection, No edema and No calf tenderness Skin General: warm and dry. Normal skin color. Normal skin turgor Neuro General: patient oriented x3, gait normal and no focal neuro deficit Cranial nerves: Yes Equal, round and reactive pupils present Cognition (Neuro): normal cognition Gait exam (Neuro): Normal gait present Sensory Exam: No Sensory deficit (Neuro) Psych Appearance: grossly normal Affect: normal affect Attitude: cooperative Thought process: Normal thought process present Coding Level of Care Code Est Pt Level 3 (23902) Diagnoses Hypertension I10 Assessment & Plan Assessment & Plan (1) Hypertension: Code(s): I10 - Essential (primary) hypertension Category: Medical Plan: Resting blood pressure is 150/90, above goal of less than 140/90. Will increase metoprolol to 75 mg twice daily; advised to take as prescribed. Routine exercise and low-sodium diet encouraged. Follow-up in 2 weeks or sooner with symptoms or concerns. Verbalized understanding and agreed with treatment plan. Medications: New metoprolol tartrate Take with metoprolol tartrate 50 mg to equal 75 mg twice daily 25 mg PO Q12H 30 days 60 tabs 3RF
[2025-01-21 15:18] VITALS: BP 166/87; PULSE 80; RESP 16; TEMP 36.7; O2SAT 100; BMI 27.4
[2025-01-21 15:31] VITALS: BP 150/90; PULSE 84
--- OUTSIDE RECORDS SUMMARY | 2025-01-21 17:08 | XMS_ITS | Data Portability ---
Author Organization [place] [facility],, CLARA VINCENT MD Address [address] [facility] [place] [address] Care Team Providers Care Search Optimization Analyst Name Role Phone RUSLAN CALDERON Primary Care Provider Assessment No assessment recorded. Plan of Treatment Reminders Order Date Submit Date Provider Last Modified By Organization Details Last Modified Time Details Appointments None recorded. Lab pap test, thinprep, cervical 2016 [address]17 [facility], Cytopathology Service, [address] [place], [address], 7 12:00:38 cytology, Pap smear 2012 [address] [facility], Cytopathology Service, [address] [place], [address], 3 05:14:37 Referral None recorded. Procedures None recorded. Surgeries None recorded. Imaging MAMMO, screening , digital, bilateral 2016 017 [facility] (Mammography), [address] [place], [address], 7 11:12:00 Medication Orders Kariva (28) 0.15 mg-0.02 mg (21)/0.01 mg (5) tablet 2012 013 [email or web address] [facility], [address] [place], [address], 7 11:12:14 Patient TargetsNo targets recorded. Patient Instructions Encounter Date Encounter Id Patient Instructions Last Modified By Organization Details Last Modified Time 03/27/2012 [id number] We had a long discussion concerning her [...] then she will contact us and we real estate office manager order a pelvic sonogram for further information. [...] to pharmacy. Not available 04/09/2013 11:43:40 05/11/2017 [id number] breast self-exam : care instructions [email or web address] Not available 05/11/2017 12:02:21 She is here for annual exam, is doing well. 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 Using condoms for control, does not want any other form of bc. considering vasectomy. Baseline mammo ordered. 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 She did have her gallbladder out [...] Detail LastModifiedTime 04/09/20 13 04/09/2013 pap1c ase [id number] thinp rep Pap and cell block : [...] at the above addre ss. Not Available [facility] Cytopathology Service [address] [place], [address], 04/18/2013 10:01:22 05/11/20 17 05/11/2017 pap, LB [id number] ThinP rep Pap, Image d: NEGAT BRUNA [...] PAP ASCUS WITH HPV Z12.4 Not Available [facility], Cytopathology Service [address] [place], [address], 05/13/2017 12:00:38 05/27/20 17 05/27/2017 MAMMO , scree lana, digit al, bilat eral No observ [facility]ion [facility] [address] [place], [address], 05/27/2017 13:05:34 06/09/20 17 06/09/2017 US, breas t No observ ation record ed. [facility] Imaging Dept [address] [place], [address], 06/10/2017 09:32:55 06/09/20 17 06/09/2017 MAMMO , diagn ostic , digit al, unila teral No observ ation record ed. [facility] Imaging [facility] [address] [place], [address], 06/10/2017 09:32:55 06/22/20 17 06/22/2017 ultra sound guide d core biops y (PROC ) No observ ation record ed. [facility] (Mammography) [address] [place], [address], 06/24/2017 11:58:19 Result Notes None recorded. Problems Name Problem SNOMED Code Status Onset Date Resolution Date Notes Provider Name and Address Organization Details Recorded Time Oligoovulator y dysfunctional uterine bleeding 024466517 Active Not Available [facility] 3 03:01:03 Problem Notes None recorded. Procedures Surgical History Date Name Laterality Status Provider Name and Address Organization Details Recorded Time 05/25/20 16 Cholecystectomy completed Suzy Cobian in [facility], 05/11/2017 11:15:55 10/24/19 00 Caesarean Section completed Suzy Cobian in [facility], 03/27/2012 11:14:11 Imaging Results Imaging Date Name Status LastModified by Organiz [facility] Details LastModified Time 05/27/2017 MAMMO, screening, digital, bilateral completed [facility] [address] [place], [address], 05/27/2017 13:05:34 06/09/2017 US, breast completed [facility] [address] [place], [address], 06/10/2017 09:32:55 06/09/2017 MAMMO, diagnostic, digital, unilateral completed [facility] [address] [place], [address], 06/10/2017 09:32:55 06/22/2017 ultrasound guided core biopsy (PROC) [facility] [address] [place], [address], 06/24/2017 11:58:19 Procedure Notes None recorded. Medical Equipment None Reported. Allergies Allergen ID Allergen Name Allergen Category Reaction Reaction Severity Criticality Documentation Date Start Date Code Code System Note Provider Name and Address Organization Details Recorded Time procaine hydrochlo ride medicatio n facial swelling Not available Not available 05/11/2017 95827 8 RxNorm Suzy cantrell [place] [facility], 7 11:10:46 Medications Name Sig Start [...] Updated DateTime 3 108 /min 167.64 cm 19450.3 57988 g 23.9 kg/m2 99 /min 140 mm[Hg] 96 mm[Hg] 157 mm[Hg] 91 mm[Hg] Yaquelin Velezyovany Cobian in [facility], 3 11:09:41 Date Recorded Body height Body weight Body mass index (BMI) Heart rate Systolic blood pressure Diastolic blood pressure Provider Name and Address Organization Details Last Updated DateTime 2 170.18 cm 30786.3 0128 g 22.6 kg/m2 94 /min 146 mm[Hg] 92 mm[Hg] Suzy Cobian in [facility], 2 11:32:07 Date Recorded Body weight Body mass index (BMI) Body height Heart rate Systolic blood pressure Diastolic blood pressure Provider Name and Address Organization Details Last Updated DateTime 7 05879.7 2 g 25.4 kg/m2 167.64 cm 98 /min 157 mm[Hg] 96 mm[Hg] Suzy Cobian in [facility], 7 11:11:15 Social History Question Answer Notes LastModified by [employer] Details LastModified Time Tobacco Smoking Status Never Smoker Not Available [facility] 08/26/2020 03:19:42 What Is Your Level Of Alcohol Consumption? Occasional [id number] Information not available 08/26/2020 What Is Your Level Of Caffeine Consumption? Moderate [id number] Information not available 08/26/2020 What Type Of Diet Are You Following? REGULAR [id number] Information not available 08/26/2020 Which Illicit Or Recreational Drugs Have You Used? None [id number] Information not available 08/26/2020 Do You Reside In Or Have You Traveled To An Area Where Ebola Virus Transmission Is Active? 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 0 Information not available 05/11/2017 High Number Of Sexual Partners No Information not available 05/11/2017 To Which Gender Do You Self-identify? Female [email or web address] Information not available 05/11/2017 Marital Status allen Informatio n not available 03/27/2012 Are You Sexually Active? Yes [id number] Information not available 08/26/2020 How Much Tobacco Do You Smoke? No [id number] Information not available 08/26/2020 General Stress Level Medium Information not available 05/11/2017 Have You Recently (within The Last 12 Weeks, Or During A Current ) Traveled To Or Lived In A Zika-affected Area? No Information not available 05/11/2017 Sex: Unknown Functional Status Question Answer Note LastModified by Organization D etails LastModified Time What is your exercise level? Moderate [id number] Information not available 08/26/2020 Mental Status None recorded. Family History Relationship Description Onset Age of this Age Resolved Age Notes LastModified by Organization Details LastModified Time Father Heart disease previo usly record ed as Heart Proble m [id number] Not available 08/12/2013 03:00:58 Medical History Condition Response Anesthesia complications N High Blood Pressure N Candidate for MyRisk panel N Autoimmune Condition N Thyroid Problems N Kidney or Bladder Problems N GI Problems N Lung Disease N Depression N Defects or Inherited Disease N History [...] and Address Organization Details Recorded Time influenza, [id number] 1 completed Clara Vincent MD [address] [facility], [place], [address], [place] [facility], 03/27/2012 11:56:27 Influenza, split virus, quadrivalent, preservative 6 completed Suzy cantrell [place] [facility], 05/11/2017 11:12:59 Past Encounters Encounter ID Performer Location Encounter Start Date Encounter Closed Date Diagnosis/Indication Diagnosis SNOMED-CT Code Diagnosis ICD10 Code Diagnosis Note [id number] CLARA VINCENT MD [address] [place] [address] 03/27/2012 10:52:24 03/27/2012 14:28:14 [id number] Suzy VINCENT MD [address] [place] [id number] 04/09/2013 09:52:36 04/09/2013 13:05:08 [id number] MD CLARA Valerio MD [address] [facility] [place] [address] 05/11/2017 10:59:16 05/11/2017 11:58:04 Specialized medical examination 14378746 Z01.419 Screening mammography 24 609432 Z12.31 Health Concerns Section Related Observation LastModified by Organization Detai ls LastModified Time None Recorded Concern Status LastModified by Organization Details LastModified Time None Recorded Advance Directives Directive None Recorded Payers Encounter Date Sequence Insurance Name Policy Number Policy Clark Covered Member ID Clark Member ID Guarantor Name 03/27/2012 1 [facility] [id number] Jordon Merida [id number] Ashtyn Merida 04/09/2013 1 [facility] [id number] Jordon [place] [id number] Ashtyn [place] 05/11/2017 1 [place] [facility] [place] [id number] Jordon Merida [id number] Ashtyn [place]ida Notes Date Note Type Note Provider Name and Address Organization Details Recorded Time 05/11/2017 text/html She is here for annual exam, is doing well. 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 Using condoms for control, does not want any other form of bc. 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 She did have her gallbladder out in the interim. She has a 17 year old daughter, after she goes to college she will have a lot more free time. Clara Vincent MD [address] [facility], [place], [address], [place] [facility], 05/11/2017 11:53:08 OBGyn Episode No OBEpisode recorded.
--- OUTSIDE RECORDS SUMMARY | 2025-01-21 17:08 | XMS_ITS | Patient Health Record ---
Author Organization [facility] Address [address] [place] [address] Support Name Relationship Address Phone TAMEKA LOZA Guarantor Unknown [phone] Reason For Referral No Information Medications Medication SIG (Take, Route, Fr equency, Duration) Notes Start Date End Date Status Claritin 10 MG 1 ORAL daily for -3 Johnnie-MJ 03/09/2012 Active Kariva 0.15-0.02/0.01 1 ORAL daily for -3 Johnnie-MJ 03/09/20 12 Active Multivitamins 1 ORAL daily for -3 Jhonnie-MJ 03/09/2012 Active Problems Problem Type SNOMED Code ICD Code Onset Dates Problem Status W/U Status Risk Notes Problem Hyperlipidemia (68714383) Other and unspecified hyperlipidemia (272.4) Active confirmed Major Problem Benign essential hypertension (5045185) Essential hypertension, benign (401.1) Active confirmed Major Problem Occlusion of cerebral artery (disorder) (88310589) Unspecified cerebral artery occlusion without mention of cerebral infarction (434.90) Active confirmed Major Problem Abnormal vaginal bleeding (747788408) Other disorder of menstruation and other abnormal bleeding from female genital tract (626.8) Active confirmed Diag Problem Menopausal symptom (61857747) Symptomatic menopausal or female climacteric states (627.2) Active confirmed Major Problem Gynecological examination normal (503729864972867) Routine gynecological examination (V72.31) Active confirmed Major Problem Screening for malignant neoplasm of colon (900086910) Special screening for malignant neoplasms, colon (V76.51) Active confirmed Major Plan Of Treatment No Information Insurance Providers Payer Name Payer Address Payer Phone Subscriber Number Group Number Insured Name Patient Relationship to Insured Coverage Start Date Coverage End Date [facility] [address] [place] [address] [id number] RICKIE LOZA Spouse - patient is the spouse of the insured 2
== END 2025-01-21 15:35 | disposition home or self-care (01) ==
LOC: HO.HMCFM 15:10
PROVIDERS: PCP Nurse Practitioner Family; Visit Provider Nurse Practitioner Family
DX: I10 Essential (primary) hypertension (principal)

== ENCOUNTER → 2025-01-21 15:10 | Outpatient (BNVA) | payer OTHER, SELFPAY | PROVIDERS: PCP Nurse Practitioner Family; Visit Provider Nurse Practitioner Family ==

== ENCOUNTER 2025-02-12 15:15 | Outpatient (AMB) | payer OTHER, SELFPAY ==
--- NOTE | 2025-02-12 15:20 | A.OFFPC_ITS ---
Vital Signs 02/12/25 15:24 02/12/25 15:42 Height 5 ft 7 in Weight 168 lb 8 oz BMI 26.4 BP 140/92 H 130/80 Blood Pressure Location Rt brachial Rt brachial Position Sitting Sitting Respiration 16 Pulse 78 Pulse Source Pulse Oximeter Temp 98.2 F Temp Source Oral Pulse Oximetry (%) 100 Oxygen Delivery Method Room Air Intake Visit Reasons: 2 wks HTN Intake Note: patient here for 2 wks follow up on HTN Cage Maker Machine Required: No Is last menstrual period known: Yes Last menstrual period: 02/03/25 Post menopausal: No Patient : No Allergies mepivacaine Allergy (Intermediate, Verified 02/12/25 15:33) Facial Swelling Medication List - Last Reconciled 02/12/25 by Kelby Robin CNP albuterol sulfate 90 mcg/actuation 2 puffs inhalation Q4-6H PRN epinephrine (EpiPen) 0.3 mg (0.3 mL) IM Q10M PRN metoprolol tartrate 50 mg PO Q12H 30 days metoprolol tartrate 25 mg PO Q12H 30 days Tobacco use date assessed: 02/12/25 Dental Screening Dental Screen Date: 02/12/25 Did you have a dental visit in the last 12 months?: Yes Did you have a dental problem in the last 6 months where you did not have access to dental care?: No Was dental information given to patient?: Patient has dentist HPI HPI Comments History of Present Illness Details 49-year-old female presents for hyperten lloyd follow-up. She admits to taking her medications as prescribed without adverse reactions. She has been making healthy dietary choices, including low salt. She offers no complaints and denies acute symptoms at this time. [facility] Medical History (Updated 12/19/24 @ 15:45 by Kelby Robin CNP) Pre-eclampsia GERD (gastroesophageal reflux disease) Sinusitis Asthma Surgical History (Updated 12/10/24 @ 13:27 by NISREEN Mcconnell) History of cholecystectomy Family History (Updated 12/10/24 @ 13:31 by NISREEN Mcconnell) Father Substance abuse FH: mental illness Asthma High blood pressure Cardiovascular disease Psychiatric disorder Mother High blood pressure Maternal Grandmother Diabetes Paternal Grandmother Diabetes Paternal Grandfather Cardiovascular disease Social History Housing: House Patient Tobacco Use Status: Never used Tobacco e-Cigarette/Vaping Use: Never Used Second Hand Smoke Exposure: Yes Patient : No service: No Current occupational status: employed 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 Current occupational exposures/hazards: No Cognitive needs: No Hearing needs: No Vision needs: No Female Reproductive History Menstrual Date of last menstrual period: 02/03/25 Questionnaire Thrive Questionnaire Date Thrive assessed: 12/07/24 I am a: Patient What is your living situation today?: I have a steady place to live Within the past 12 months, did the food you bought not last and you didn't have the money to get more?: Never true Within the past 12 months, did you worry whether your food would run out before you got money to buy more?: Never true Do you have trouble paying for medicines?: No Do you have trouble getting transportation to medical appointments?: No Do you have trouble paying your heating and electricity bill?: No Do you have trouble taking care of your child, family member or friend?: No Do you have trouble with day-to-day activities such as bathing, preparing meals, shopping, managing finances, etc.?: No Are you currently unemployed and looking for a job?: No Are you interested in more education?: No Please select the resources that you would like help with: None Currently or been in a relationship where the following occur: No concerns reported THRIVE Score: 0 STEFAN-7 AMB Questionnaire STEFAN-7 Date STEFAN - 7 assessed: 12/10/24 Source: Developed by Drs. Sascha Felix, Morelia Aquino, Dat Madden and colleagues, with an educational nitin from [employer]. Review of Systems Const Details: Const Denies chills, Denies fatigue, Denies fever(s), Denies headache(s) and Denies weakness ENT Denies dizziness and Denies headache(s) Card Denies chest pain, Denies lightheadedness, Denies dyspnea and Denies other (Palpitations) Resp Denies cough, Denies dyspnea, Denies wheezing and Denies other ( shortness of breath) GI Denies abdominal pain, Denies melena, Denies hematochezia, Denies change in kelly wel habits, Denies dyspepsia and Denies nausea Denies hematuria and Denies dysuria Musc Denies abnormal gait, Denies myalgias, Denies arthralgias, Denies numbness and Denies tingling Skin/Breast Denies rash, Denies unusual bruising and Denies wounds Neuro Denies abnormal gait, Denies dizziness, Denies headache(s), Denies memory loss, Denies numbness, Denies Sensory deficit (Neuro), Denies tingling and Denies weakness Psych Denies anxiety, Denies depression, Denies memory loss Endo Denies cold intolerance, Denies fatigue, Denies heat intolerance, Denies polydipsia and Denies polyuria Aller/Immun Denies wheezing Physical exam (Primary Care) Vital Signs: Last Vital Signs Temp 98.2 F 02/12/25 15:24 Pulse 78 02/12/25 15:24 Resp 16 02/12/25 15:24 BP 140/92 H 02/12/25 15:24 Pulse Ox 100 02/12/25 15:24 Oxygen Delivery Method Room Air 02/12/25 15:24 BMI result Body Mass Index 26.4 Tobacco/Smoking Status: Tobacco use Status Tobacco use date assessed 02/12/25 02/12/25 15:26 Patient Tobacco Use Status Never used Tobacco 02/12/25 15:26 e-Cigarette/Vaping Use Never Used 02/12/25 15:26 Thrive Assessment: Date of Thrive Assessment Date Thrive assessed 12/07/24 02/12/25 15:26 Currently or been in a relationship where the following occur: No concerns reported Const Other: General: no acute distress and well developed Nutritional Appearance: well nourished Orientation/consciousness: patient oriented x3 HENMT Head: Yes normocephalic and Yes atraumatic Eyes General: appearance normal, both eyes and all related structures Pupils: Equal, round and reactive pupils present EOM: EOMs intact bilaterally Resp Effort & Inspection: normal respiratory effort Auscultation: clear to auscultation bilaterally Cardio Rate: regular rate Rhythm: regular rhythm Heart sounds: S1 normal heart sound present, S2 normal heart sound present, no gallops, no murmurs and no rubs GI Palpation (GI): No Abdominal aortic bruit present, Soft to palpation, nontender, No hepatosplenomegaly present and No Rebound tenderness present Auscultation: normal bowel sounds General: Yes no CVA tenderness Back/Spine/Pelvis Back: no CVA tenderness Cervical Spine: cervical ROM normal and No Cervical spine tenderness Thoracic/Lumbar Spine: thoraco-lumbar ROM normal, No pain with thoraco-lumbar ROM, No thoracic spinal tenderness and No lumbar spinal tenderness Extrem General: Yes normal to inspection, No edema and No calf tenderness Skin General: warm and dry. Normal skin color. Normal skin turgor Neuro General: patient oriented x3, gait normal and no focal neuro deficit Cranial nerves: Yes Equal, round and reactive pupils present Cognition (Neuro): normal cognition Gait exam (Neuro): Normal gait present Sensory Exam: No Sensory deficit (Neuro) Psych Appearance: grossly normal Affect: normal affect Attitude: cooperative Thought process: Normal thought process present Coding Level of Care Code Est Pt Level 3 (03959) Diagnoses Hypertension I10 Assessment & Plan Assessment & Plan (1) Hypertension: Code(s): I10 - Essential (primary) hypertension Category: Medical Plan: Resting blood pressure is 130/80, within goal of less than 140/90. Heart rate is 78. Continue current treatment regimen. Routine exercise and low-sodium diet encouraged. Follow-up in 1 month. Return sooner with symptoms or concerns. Verbalized understanding and agreed with the treatment plan.
[2025-02-12 15:24] VITALS: BP 140/92; PULSE 78; RESP 16; TEMP 36.8; O2SAT 100; BMI 26.4
[2025-02-12 15:42] VITALS: BP 130/80
--- OUTSIDE RECORDS SUMMARY | 2025-02-12 18:11 | XMS_ITS | Data Portability ---
Author Organization [place] [facility],, CLARA VINCENT MD Address [address] [facility] [address] [place] [address] Care Team Providers Care Frit Burner Name Role Phone RUSLAN CALDERON Primary Care Provider Assessment No assessment recorded. Plan of Treatment Reminders Order Date Submit Date Provider Last Modified By Organization Details Last Modified Time Details Appointments None recorded. Lab pap test, thinprep, cervical 2016 017 [facility], Cytopathology Service, [address] [place], [address], 7 12:00:38 cytology, Pap smear 2012 013 [facility], Cytopathology Service, [address] [place], [address], 3 05:14:37 Referral None recorded. Procedures None recorded. Surgeries None recorded. Imaging MAMMO, screening , digital, bilateral 2016 017 [facility] (Mammography), [address] [place], [address], 7 11:12:00 Medication Orders Kariva (28) 0.15 mg-0.02 mg (21)/0.01 mg (5) tablet 2012 013 [email or web address] [facility], [address] [place], [address], 7 11:12:14 Patient TargetsNo targets recorded. Patient Instructions Encounter Date Encounter Id Patient Instructions Last Modified By Organization Details Last Modified Time 03/27/2012 [id number] We had a long discussion concerning her [...] then she will contact us and we edi specialist order a pelvic sonogram for further information. [...] to pharmacy. Not available 04/09/2013 11:43:40 05/11/2017 [id number] breast self-exam : care instructions [email or web address] Not available 05/11/2017 12:02:21 She is here for annual exam, is doing well. 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 Using condoms for control, does not want any other form of bc. considering vasectomy. Baseline mammo ordered. 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 She did have her gallbladder out [...] Detail LastModifiedTime 04/09/20 13 04/09/2013 pap1c ase [id number] thinp rep Pap and cell block : [...] at the above addre ss. Not Available [place] [facility], Cytopathology Service [address] [place], [address], 04/18/2013 10:01:22 05/11/20 17 05/11/2017 pap, LB [id number] ThinP rep Pap, Image d: NEGAT BRUNA [...] PAP ASCUS WITH HPV Z12.4 Not Available [place] [facility], Cytopathology Service [address] [place], [address], 05/13/2017 12:00:38 05/27/20 17 05/27/2017 MAMMO , scree lana, digit al, bilat eral No observ [facility]ion [email or web address] [address] [place], [address], 05/27/2017 13:05:34 06/09/20 17 06/09/2017 US, breas t No observ ation record ed. [facility] Diagnosit Imaging Dept [address] [place], [address], 06/10/2017 09:32:55 06/09/20 17 06/09/2017 MAMMO , diagn ostic , digit al, unila teral No observ ation record ed. [facility] Imaging Dept [address] [place], [address], 06/10/2017 09:32:55 06/22/20 17 06/22/2017 ultra sound guide d core biops y (PROC ) No observ ation record ed. [facility] (Mammography) [address] [place], [address], 06/24/2017 11:58:19 Result Notes None recorded. Problems Name Problem SNOMED Code Status Onset Date Resolution Date Notes Provider Name and Address Organization Details Recorded Time Oligoovulator y dysfunctional uterine bleeding 833557194 Active Not Available [facility] 3 03:01:03 Problem Notes None recorded. Procedures Surgical History Date Name Laterality Status Provider Name and Address Organization Details Recorded Time 05/25/20 16 Cholecystectomy completed Suzy Cobian in [facility], 05/11/2017 11:15:55 10/24/19 00 Caesarean Section completed Suzy Cobian in [facility], 03/27/2012 11:14:11 Imaging Results Imaging Date Name Status LastModified by Organiz [facility] Details LastModified Time 05/27/2017 MAMMO, screening, digital, bilateral completed [facility] Dept [address] [place], [address], 05/27/2017 13:05:34 06/09/2017 US, breast completed [facility] Dept [address] [place], [address], 06/10/2017 09:32:55 06/09/2017 MAMMO, diagnostic, digital, unilateral completed [facility] Imaging Dept [address] [place], [address], 06/10/2017 09:32:55 06/22/2017 ultrasound guided core biopsy (PROC) [facility] [address] [place], [address], 06/24/2017 11:58:19 Procedure Notes None recorded. Medical Equipment None Reported. Allergies Allergen ID Allergen Name Allergen Category Reaction Reaction Severity Criticality Documentation Date Start Date Code Code System Note Provider Name and Address Organization Details Recorded Time procaine hydrochlo ride medicatio n facial swelling Not available Not available 05/11/2017 99988 8 RxNorm Suzy cantrell [place] [facility], 7 11:10:46 Medications Name Sig [...] Updated DateTime 3 108 /min 167.64 cm 33103.3 71815 g 23.9 kg/m2 99 /min 140 mm[Hg] 96 mm[Hg] 157 mm[Hg] 91 mm[Hg] Yaquelin Velezyovany Cobian in [facility], 3 11:09:41 Date Recorded Body height Body weight Body mass index (BMI) Heart rate Systolic blood pressure Diastolic blood pressure Provider Name and Address Organization Details Last Updated DateTime 2 170.18 cm 15210.3 0128 g 22.6 kg/m2 94 /min 146 mm[Hg] 92 mm[Hg] Suzy Cobian in [facility], 2 11:32:07 Date Recorded Body weight Body mass index (BMI) Body height Heart rate Systolic blood pressure Diastolic blood pressure Provider Name and Address Organization Details Last Updated DateTime 7 50796.7 2 g 25.4 kg/m2 167.64 cm 98 /min 157 mm[Hg] 96 mm[Hg] Suzy Cobian in [facility], 7 11:11:15 Social History Question Answer Notes LastModified by Boujuizat ion Details LastModified Time Tobacco Smoking Status Never Smoker Not Available [facility] 08/26/2020 03:19:42 What Is Your Level Of Alcohol Consumption? Occasional [id number] Information not available 08/26/2020 What Is Your Level Of Caffeine Consumption? Moderate [id number] Information not available 08/26/2020 What Type Of Diet Are You Following? REGULAR [id number] Information not available 08/26/2020 Which Illicit Or Recreational Drugs Have You Used? None [id number] Information not available 08/26/2020 Do You Reside In Or Have You Traveled To An Area Where Ebola Virus Transmission Is Active? 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 0 Information not available 05/11/2017 High Number Of Sexual Partners No Information not available 05/11/2017 To Which Gender Do You Self-identify? Female [email or web address] Information not available 05/11/2017 Marital Status allen Informatio n not available 03/27/2012 Are You Sexually Active? Yes [id number] Information not available 08/26/2020 How Much Tobacco Do You Smoke? No [id number] Information not available 08/26/2020 General Stress Level Medium Information not available 05/11/2017 Have You Recently (within The Last 12 Weeks, Or During A Current ) Traveled To Or Lived In A Zika-affected Area? No Information not available 05/11/2017 Sex: Unknown Functional Status Question Answer Note LastModified by Organization D etails LastModified Time What is your exercise level? Moderate [id number] Information not available 08/26/2020 Mental Status None recorded. Family History Relationship Description Onset Age of this Age Resolved Age Notes LastModified by Organization Details LastModified Time Father Heart disease previo usly record ed as Heart Proble m [id number] Not available 08/12/2013 03:00:58 Medical History Condition Response Anesthesia complications N High Blood Pressure N Candidate for MyRisk panel N Autoimmune Condition N Thyroid Problems N Kidney or Bladder Problems N GI Problems N Lung Disease N Depression N Defects or Inherited Disease N Anemia N History of Ovarian Cancer N History of Breast Cancer N GINA [...] and Address Organization Details Recorded Time influenza, P4D6-5737 1 completed Clara Vincent MD [address] [facility],[address], [place], [address], [place] [facility], 03/27/2012 11:56:27 Influenza, split virus, quadrivalent, preservative 6 completed Suzy cantrell [place] [facility], 05/11/2017 11:12:59 Past Encounters Encounter ID Performer Location Encounter Start Date Encounter Closed Date Diagnosis/Indication Diagnosis SNOMED-CT Code Diagnosis ICD10 Code Diagnosis Note [id number] CLARA VINCENT MD [address] [place] [id number] 03/27/2012 10:52:24 03/27/2012 14:28:14 [id number] Suzy VINCENT MD [address] [place] [address] 04/09/2013 09:52:36 04/09/2013 13:05:08 [id number] MD CLARA Valerio MD [address] [facility] [place] [address] 05/11/2017 10:59:16 05/11/2017 11:58:04 Specialized medical examination 43983872 Z01.419 Screening mammography 24 377081 Z12.31 Health Concerns Section Related Observation LastModified by Organization Detai ls LastModified Time None Recorded Concern Status LastModified by Organization Details LastModified Time None Recorded Advance Directives Directive None Recorded Payers Encounter Date Sequence Insurance Name Policy Number Policy Clark Covered Member ID Clark Member ID Guarantor Name 03/27/2012 1 [facility] [id number] Jordon Merida [id number] Ashtyn Merida 04/09/2013 1 [facility] [id number] Jordon Merida [id number] Ashtyn Merida 05/11/2017 1 [place] [facility] [id number] Jordon Merida [id number] Ashtyn Merida Notes Date Note Type Note Provider Name and Address Organization Details Recorded Time 05/11/2017 text/html She is here for annual exam, is doing well. 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 Using condoms for control, does not want any other form of bc. 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 She did have her gallbladder out in the interim. She has a 17 year old daughter, after she goes to college she will have a lot more free time. Clara Vincent MD [address] [facility],[address], [place], [address], [place] - [facility], 05/11/2017 11:53:08 OBGyn Episode No OBEpisode recorded.
--- OUTSIDE RECORDS SUMMARY | 2025-02-12 18:11 | XMS_ITS | Patient Health Record ---
Author Organization [facility] Address [address] [place] [address] Support Name Relationship Address Phone TAMEKA LOZA Guarantor Unknown [phone] Reason For Referral No Information Medications Medication [...] Status W/U Status Risk Notes Problem Hyperlipidemia (35113377) Other and unspecified hyperlipidemia (272.4) Active confirmed Major Problem Benign essential hypertension (7487226) Essential hypertension, benign (401.1) Active confirmed Major Problem Occlusion of cerebral artery (disorder) (65648974) Unspecified cerebral artery occlusion without mention of cerebral infarction (434.90) Active confirmed Major Problem Abnormal vaginal bleeding (475421085) Other disorder of menstruation and other abnormal bleeding from female genital tract (626.8) Active confirmed Diag Problem Menopausal symptom (42046306) Symptomatic menopausal or female climacteric states (627.2) Active confirmed Major Problem Gynecological examination normal (505397428245829) Routine gynecological examination (V72.31) Active confirmed Major Problem Screening for malignant neoplasm of colon (380042380) Special screening for malignant neoplasms, colon (V76.51) Active confirmed Major Plan Of Treatment No Information Insurance Providers Payer Name Payer Address Payer Phone Subscriber Number Group Number Insured Name Patient Relationship to Insured Coverage Start Date Coverage End Date [facility] [address] [place] [address] [id number] RICKIE LOZA Spouse - patient is the spouse of the insured 2
== END 2025-02-12 15:43 | disposition home or self-care (01) ==
LOC: HO.HMCFM 15:16
PROVIDERS: PCP Nurse Practitioner Family; Visit Provider Nurse Practitioner Family
DX: I10 Essential (primary) hypertension (principal)

== ENCOUNTER → 2025-02-12 15:15 | Outpatient (BNVA) | payer OTHER, SELFPAY | PROVIDERS: PCP Nurse Practitioner Family; Visit Provider Nurse Practitioner Family | DX: Z13.89 Encounter for screening for other disorder (principal) ==

== ENCOUNTER 2025-04-15 14:56 | Outpatient (AMB) | payer OTHER, SELFPAY ==
--- NOTE | 2025-04-15 14:58 | MHC.PC.OV ---
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 Required: No Is last menstrual period known: No Post menopausal: No Patient : No Allergies mepivacaine Allergy (Intermediate, Verified 04/15/25 15:06) Facial Swelling Medication List - Last Reconciled 04/15/25 by Kelby Robin CNP albuterol sulfate 90 mcg/actuation 2 puffs inhalation Q4-6H PRN epinephrine (EpiPen) 0.3 mg (0.3 mL) IM Q10M PRN metoprolol tartrate 50 mg PO Q12H 30 days metoprolol tartrate 25 mg PO Q12H 30 days Tobacco use date assessed: 04/15/25 Dental Screening Dental Screen Date: 04/15/25 Did you have a dental visit in the last 12 months?: Yes Did you have a dental problem in the last 6 months where you did not have access to dental care?: No Was dental information given to patient?: Patient has dentist HPI HPI Comments History of Present Illness Details 49-year-old female presents for hypertension follow-up. She admits to taking her medications as prescribed without adverse reactions. She has been making healthy dietary choices, including low salt. She reports itchy rash to her forearms from poison blu. She spends a lot of time outdoors. Hydrocortisone cream and Benadryl are minimally effective. [facility], [facility] Medical History (Updated 04/15/25 @ 15:28 by Kelby Robin CNP) Pre-eclampsia GERD (gastroesophageal reflux disease) Sinusitis Asthma Surgical History (Updated 12/10/24 @ 13:27 by NISREEN Mcconnell) History of cholecystectomy Family History (Updated 12/10/24 @ 13:31 by NISREEN Mcconnell) Father Substance abuse FH: mental illness Asthma High blood pressure Cardiovascular disease Psychiatric disorder Mother High blood pressure Maternal Grandmother Diabetes Paternal Grandmother Diabetes Paternal Grandfather Cardiovascular disease Social History Housing: House Patient Tobacco Use Status: Never used Tobacco e-Cigarette/Vaping Use: Never Used Second Hand Smoke Exposure: Yes service: No Current occupational status: employed 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 Current occupational exposures/hazards: No Cognitive needs: No Hearing needs: No Vision needs: No Questionnaire Thrive Questionnaire Date Thrive assessed: 12/07/24 I am a: Patient What is your living situation today?: I have a steady place to live Within the past 12 months, did the food you bought not last and you didn't have the money to get more?: Never true Within the past 12 months, did you worry whether your food would run out before you got money to buy more?: Never true Do you have trouble paying for medicines?: No Do you have trouble getting transportation to medical appointments?: No Do you have trouble paying your heating and electricity bill?: No Do you have trouble taking care of your child, family member or friend?: No Do you have trouble with day-to-day activities such as bathing, preparing meals, shopping, managing finances, etc.?: No Are you currently unemployed and looking for a job?: No Are you interested in more education?: No Please select the resources that you would like help with: None Currently or been in a relationship where the following occur: No concerns reported THRIVE Score: 0 STEFAN-7 AMB Questionnaire STEFAN-7 Date STEFAN - 7 assessed: 12/10/24 Source: Developed by Drs. Sascha Felix, Morelia Aquino, Dat Madden and colleagues, with an educational nitin from [employer]. Review of Systems Const Details: Const Denies chills, Denies fatigue, Denies fever(s), Denies headache(s) and Denies weakness ENT Denies dizziness and Denies headache(s) Card Denies chest pain, Denies lightheadedness, Denies dyspnea and Denies other (Palpitations) Resp Denies cough, Denies dyspnea, Denies wheezing and Denies other ( shortness of breath) GI Denies abdominal pain, Denies melena, Denies hematochezia, Denies change in bowel habits, Denies dyspepsia and Denies nausea Denies hematuria and Denies dysuria Musc Denies abnormal gait, Denies myalgias, Denies arthralgias, Denies numbness and Denies tingling Skin/Breast Reports as per HPI Neuro Denies abnormal gait, Denies dizziness, Denies headache(s), Denies memory loss, Denies numbness, Denies Sensory deficit (Neuro), Denies tingling and Denies weakness Psych Denies anxiety, Denies depression, Denies memory loss Endo Denies cold intolerance, Denies fatigue, Denies heat intolerance, Denies polydipsia and Denies polyuria Aller/Immun Denies wheezing Physical exam (Primary Care) Tobacco/Smoking Status: Tobacco use Status Tobacco use date assessed 02/12/25 02/12/25 15:26 Patient Tobacco Use Status Never used Tobacco 02/12/25 15:26 e-Cigarette/Vaping Use Never Used 02/12/25 15:26 Thrive Assessment: Date of Thrive Assessment Date Thrive assessed 12/07/24 02/12/25 15:26 Currently or been in a relationship where the following occur: No concerns reported Const Other: General: no acute distress and well developed Nutritional Appearance: well nourished Orientation/consciousness: patient oriented x3 HENMT Head: Yes normocephalic and Yes atraumatic Eyes General: appearance normal, both eyes and all related structures Pupils: Equal, round and reactive pupils present EOM: EOMs intact bilaterally Resp Effort & Inspection: normal respiratory effort Auscultation: clear to auscultation bilaterally Cardio Rate: regular rate Rhythm: regular rhythm Heart sounds: S1 normal heart sound present, S2 normal heart sound present, no gallops, no murmurs and no rubs GI Palpation (GI): No Abdominal aortic bruit present, Soft to palpation, nontender, No hepatosplenomegaly present and No Rebound tenderness present Auscultation: normal bowel sounds General: Yes no CVA tenderness Back/Spine/Pelvis Back: no CVA tenderness Cervical Spine: cervical ROM normal and No Cervical spine tenderness Thoracic/Lumbar Spine: thoraco-lumbar ROM normal, No pain with thoraco-lumbar ROM, No thoracic spinal tenderness and No lumbar spinal tenderness Extrem General: Yes normal to inspection, No edema and No calf tenderness Skin General: warm and dry. Normal skin color. Normal skin turgor Lesions: no lesions Rashes: Scant, slightly red and slightly raised rash to both forearms, consistent with poison blu Trauma: no lacerations or abrasions Wounds: no wounds Nails: normal Neuro General: patient oriented x3, gait normal and no focal neuro deficit Cranial nerves: Yes Equal, round and reactive pupils present Cognition (Neuro): normal cognition Gait exam (Neuro): Normal gait present Sensory Exam: No Sensory deficit (Neuro) Psych Appearance: grossly normal Affect: normal affect Attitude: cooperative Thought process: Normal thought process present Coding Level of Care Code Est Pt Level 3 (94705) Complex EM visit Add On G2211 Diagnoses Hypertension I10 Rash R21 Assessment & Plan Assessment & Plan (1) Hypertension: Code(s): I10 - Essential (primary) hypertension Category: Medical Plan: Resting blood pressure is 126/76, within goal of less than 140/90. Continue current treatment regimen. Low-sodium diet and routine exercise encouraged. Follow-up in 3 months or sooner with symptoms or concerns. Verbalized understanding and agreed with the treatment plan. (2) Rash: Code(s): R21 - Rash and other nonspecific skin eruption Category: Medical Plan: Scant, slightly red and slightly raised rash to both forearms, consistent with poison blu. Triamcinolone cream ordered; advised to use as prescribed. Encouraged to avoid exposure to poison blu/oak/sumac. Return with worsening signs and symptoms. Verbalized understanding and agreed with the plan. Medications: New triamcinolone acetonide 0.1% 1 appl topical BID PRN 30 grams 0RF itching Changed From metoprolol tartrate 50 mg PO Q12H 30 days 60 tabs 3RF To metoprolol tartrate 50 mg PO Q12H 180 tabs 1RF 90 days From metoprolol tartrate Take with metoprolol tartrate 50 mg to equal 75 mg twice daily 25 mg PO Q12H 30 days 60 tabs 3RF To metoprolol tartrate Take with metoprolol tartrate 50 mg to equal 75 mg twice daily 25 mg PO Q12H 180 tabs 1RF 90 days
[2025-04-15 15:04] VITALS: BP 145/70; PULSE 76; RESP 16; TEMP 36.8; O2SAT 100; BMI 26.8
[2025-04-15 15:09] VITALS: BP 126/76
--- OUTSIDE RECORDS SUMMARY | 2025-04-15 16:29 | XMS_ITS | Data Portability ---
Author Organization [place] - [facility],, CLARA VINCENT MD Address [address] [place] [address] Care Team Providers Care Ear Nose And Throat Specialist Name Role Phone RUSLAN CALDERON Primary Care Provider Assessment No assessment recorded. Plan of Treatment Reminders Order Date Submit Date Provider Last Modified By Organization Details Last Modified Time Details Appointments None recorded. Lab pap test, thinprep, cervical [address] [facility]ology [facility], Cytopathology Service, [address] [place], [address], 7 12:00:38 cytology, Pap smear [address] [facility]ology [facility], Cytopathology Service, [address] [place], [address], 3 05:14:37 Referral None recorded. Procedures None recorded. Surgeries None recorded. Imaging MAMMO, screening , digital, bilateral 2016 017 [facility] (Mammography), [address] [place], [address], 7 11:12:00 Medication Orders Kariva (28) 0.15 mg-0.02 mg (21)/0.01 mg (5) tablet 2012 013 [id number], [address] [place], [address], 7 11:12:14 Patient TargetsNo targets recorded. Patient Instructions Encounter Date Encounter Id Patient Instructions Last Modified By Organization Details Last Modified Time 03/27/2012 [id number] We had a long discussion concerning her history of irregular bleeding between cycles. This has been ongoing for the past ten years, although usually it resolved when she was taking the OCP. We discussed the posisble etiology of DUB, including endometiral or cervical polyp, fibroid, cervical cancer, endometiral cancer, or foreign body. She had a normall pap smear and pelvic exam last month. After a long discussion she elects to wait and see how she does with the Kariva, if the DUB resolves then no furhter testing or treatment is necessary at this time. If the DUB persists then she will contact us and we drug safety scientist order a pelvic sonogram for further information. She understands this plan and agrees. She will obtain her old records for me to review, as well. Return for next annual exam if the DUB resolves, if not then return as needed. Face to face discussion 30 minutes. Not available 03/27/2012 13:25:45 04/09/2013 [id number] pelvic exam: car ector instructions CALISTA Not available 05/18/2013 05:14:37 Her BP is slight ly raised, she will follow up with her PCP, it may be due to weight gain, or the OCP. We discussed that if she can not get it to decrease then she will need to stop the OCP, she is aware. Life [...] to pharmacy. Not available 04/09/2013 11:43:40 05/11/2017 [id number] breast self-exam : care instructions [email or web address] Not available 05/11/2017 12:02:21 She is here for annual exam, is doing well. 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 Using condoms for control, does not want any other form of bc. considering vasectomy. Baseline mammo ordered. she has not been here in 4 years, has not had any clinical research manager problems. She did have her gallbladder out [...] Detail LastModifiedTime 04/09/20 13 04/09/2013 pap1c ase tob2dhxb thinp rep Pap and cell block : atypi moni squam ous cells of undet ermin ed signi gustavo ce (ASCU S). resul ts of HPV: high risk: not detec ajsmine (sero types 16,18 ,31,3 3,35, 39,45 ,51,5 [...] provi ded by [facility] at the above addre ss. Not Available [facility], Cytopathology Service [address] [place], [address], 04/18/2013 10:01:22 05/11/20 17 05/11/2017 pap, LB [id number] ThinP rep Pap, Image d: NEGAT BRUNA [...] PAP ASCUS WITH HPV Z12.4 Not Available [facility], Cytopathology Service [address] [place], [address], 05/13/2017 12:00:38 05/27/2005/27/2017 MAMMO , obie moodyg, digit al, bilat eral No observ [facility]ion [facility] [address] [place], [address], 05/27/2017 13:05:34 06/09/2006/0906/09/2017 US, kt t No observ ation record ed. [facility] [address] [place], [address], 06/10/2017 09:32:55 06/09/20 17 06/09/2017 MAMMO , diagn ostic , digit al, unila teral No observ ation record ed. [facility] [address] [place], [address], 06/10/2017 09:32:55 06/22/20 17 06/22/2017 ultra sound guide d core biops y (PROC ) No observ ation record ed. [facility] (Mammography) [address] [place], [address], 06/24/2017 11:58:19 Result Notes None recorded. Problems Name Problem SNOMED Code Status Onset Date Resolution Date Notes Provider Name and Address Organization Details Recorded Time Oligoovulator y dysfunctional uterine bleeding [id number] Active Not Available [facility] 3 03:01:03 Problem Notes None recorded. Procedures Surgical History Date Name Laterality Status Provider Name and Address Organization Details Recorded Time 05/25/20 16 Cholecystectomy completed Suzy Cobian in [facility], 05/11/2017 11:15:55 10/24/19 00 Caesarean Section completed Suzy Cobian in [facility], 03/27/2012 11:14:11 Imaging Results None recorded. Procedure Notes None recorded. Medical Equipment None Reported. Allergies Allergen ID Allergen Name Allergen Category Reaction Reaction Severity Criticality Documentation Date Start Date Code Code System Note Provider Name and Address Organization Details Recorded Time 44379 procaine hydrochlo ride medicatio n facial swelling Not available Not available 05/11/2017 73947 8 RxNorm SHAZIA Ford in [facility], 7 11:10:46 Medications Name Sig Start Date [...] Not Available Not Available Vitals Date Recorded Body height Body weight Body mass index (BMI) Heart rate Systolic blood pressure Diastolic blood pressure Provider Name and Address Organization Details Last Updated DateTime 2 170.18 cm 87922.3 0128 g 22.6 kg/m2 94 /min 146 mm[Hg] 92 mm[Hg] Suzy Cobian in [facility], 2 11:32:07 Date Recorded Heart rate Body height Body weight Body mass index (BMI) Heart rate Systolic blood pressure Diastolic blood pressure Systolic blood pressure Diastolic blood pressure Provider Name and Address Organization Details Last Updated DateTime 3 108 /min 167.64 cm 15145.3 69021 g 23.9 kg/m2 99 /min 140 mm[Hg] 96 mm[Hg] 157 mm[Hg] 91 mm[Hg] Yaquelin Cobian in [facility], 3 11:09:41 Date Recorded Body weight Body mass index (BMI) Body height Heart rate Systolic blood pressure Diastolic blood pressure Provider Name and Address Organization Details Last Updated DateTime 7 38111.7 2 g 25.4 kg/m2 167.64 cm 98 /min 157 mm[Hg] 96 mm[Hg] Suzy Cobian in [facility], 7 11:11:15 Social History Question Answer Notes LastModified by Organizat ion Details LastModified Time Tobacco Smoking Status Never Smoker Not Available [facility] 08/26/2020 03:19:42 What Is Your Level Of Caffeine Consumption? Moderate [id number] Information not available 08/26/2020 What Type Of Diet Are You Following? REGULAR [id number] Information not available 08/26/2020 Which Illicit Or Recreational Drugs Have You Used? None [id number] Information not available 08/26/2020 Do You Reside In Or Have You Traveled To An Area Where Ebola Virus Transmission Is Active? No [id number] Information not available 08/26/2020 Education 4 Year College Information not available 03/27/2012 How Many Days In The Past Year Have You Had A Heavy Drinking Consumption (4+ Female, 5+ Male)? 0 Information no t available 05/11/2017 High Number Of Sexual Partners No Information not available 05/11/2017 To Which Gender Do You Self-identify? Female Information not available 05/11/2017 Marital Status Informatio n not available 03/27/2012 Are You Sexually Active? Yes [id number] Information not available 08/26/2020 How Much Tobacco Do You Smoke? No [id number] Information not available 08/26/2020 General Stress Level Medium Information not available 05/11/2017 Have You Recently (within The Last 12 Weeks, Or During A Current ) Traveled To Or Lived In A Zika-affected Area? No Information not available 05/11/2017 Sex: Unknown Functional Status Question Answer Note LastModified by Organizat ion Details LastModified Time What is your level of alcohol consumption? 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 Moderate [id number] Information not available 08/26/2020 Mental Status None recorded. Family History Relationship Description Onset Age of this Age Resolved Age Notes LastModified by Organization Details LastModified Time Father Heart disease previo usly record ed as Heart Proble m [id number] Not available 08/12/2013 03:00:58 Medical History Condition Response Anesthesia complications N High Blood Pressure N Candidate for MyRisk panel N Autoimmune Condition N Depression N Lung Disease N Defects or Inherited Disease N History of Ovarian Cancer N BRCA testing in past N Anxiety Disorder N Arthritis N Infertility N History of Cancer N Endometriosis N Kidney or Bladder Problems N Thyroid Problems N GI Problems N Anemia N History of Breast Cancer N GINA exposure N Osteopenia N Psychiatric Illness N Diabetes N Headaches or Migraines N Asthma Y Hepatitis N Heart Disease N Hypertension N [...] Immunizations Vaccine Type Date Status Note Provider Nam e and Address Organization Details Recorded Time influenza, [id number] 1 completed Clara Vincent MD [address], [place], [address], [place] [facility], 03/27/2012 11:56:27 Influenza, split virus, quadrivalent, preservative 6 completed Suzy cantrell [place] - [facility], 05/11/2017 11:12:59 Past Encounters Encounter ID Performer Location Encounter Start Date Encounter Closed Date Diagnosis/Indication Diagnosis SNOMED-CT Code Diagnosis ICD10 Code Diagnosis Note [id number] MD CLARA Valerio MD [address] [place] [address] 03/27/2012 10:52:24 03/27/2012 14:28:14 [id number] MD CLARA Valerio MD [address] [place] [address] 04/09/2013 09:52:36 04/09/2013 13:05:08 [id number] MD CLARA Valerio MD [address] [place] [address] 05/11/2017 10:59:16 05/11/2017 11:58:04 Specialized medical examination 59110136 Z01.419 Screening mammography 24 810182 Z12.31 Health Concerns Section Related Observation LastModified by Organization Detai ls LastModified Time None Recorded Concern Status LastModified by Organization Details LastModified Time None Recorded Advance Directives Directive None Recorded Payers Insurance Date Sequence Insurance Name Policy Number Policy Clark Covered Member ID Clark Member ID Guarantor Name 05/11/2017 1 [place] [facility] [id number] Jordon Merida [id number] Ashtyn Fuad 05/11/2017 1 [facility] [id number] Jordon Merida [id number] Ashtyn Merida Notes Date Note Type Note Provider Name and Address Organization Details Recorded Time 05/11/2017 text/html She is here for annual exam, is doing well. 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 Using condoms for control, does not want any other form of bc. she has not been here in 4 years, has not had any clinical research manager problems. She did have her gallbladder out in the interim. She has a 17 year old daughter, after she goes to college she will have a lot more free time. Clara Vincent MD [address], [place], [address], [place] [facility], 05/11/2017 11:53:08 OBGyn Episode No OBEpisode recorded.
== END 2025-04-15 15:24 | disposition home or self-care (01) ==
LOC: HO.HMCFM 14:56
PROVIDERS: PCP Nurse Practitioner Family; Visit Provider Nurse Practitioner Family
DX: I10 Essential (primary) hypertension (principal); R21 Rash and other nonspecific skin eruption

== ENCOUNTER → 2025-04-15 14:56 | Outpatient (BNVA) | payer OTHER, SELFPAY | PROVIDERS: PCP Nurse Practitioner Family; Visit Provider Nurse Practitioner Family | DX: Z13.89 Encounter for screening for other disorder (principal) ==

== ENCOUNTER 2025-05-08 14:31 | Outpatient (REF) | payer OTHER, SELFPAY | END 2025-05-08 14:32 | disposition home or self-care (01) | LOC: HO.LNP 14:31 | PROVIDERS: PCP Nurse Practitioner Family; Visit Provider Advanced Practice Midwife | DX: Z01.419 Encounter for gynecological examination (general) (routine) without abnormal findings (principal); R92.30 Dense breasts, unspecified; Z79.899 Other long term (current) drug therapy | CPT/HCPCS: 87626; 88175 ==

== ENCOUNTER 2025-05-08 14:31 | Outpatient (AMB) | payer OTHER, SELFPAY ==
--- NOTE | 2025-05-08 14:44 | MHC.OFFVIS ---
Vital Signs 05/08/25 14:55 Height 5 ft 7 in Weight 170 lb BMI 26.6 BP 128/82 Blood Pressure Location Rt brachial Position Sitting Intake Visit Reasons: INSECTICIDE EXPERT annual exam/Internal Referral Intake Note: does not want std testing Information Interpreted: clinical only Accompanied by: Self / Same As Patient Allergies bee pollen (bee stings) Allergy (Intermediate, Verified 05/08/25 14:51) Angioedema mepivacaine Allergy (Intermediate, Verified 05/08/25 14:51) Facial Swelling Medication List - Last Reconciled 05/08/25 by Claudia Zeng LPN albuterol sulfate 90 mcg/actuation 2 puffs inhalation Q4-6H PRN epinephrine (EpiPen) 0.3 mg (0.3 mL) IM Q10M PRN metoprolol tartrate 50 mg PO Q12H 90 days metoprolol tartrate 25 mg PO Q12H 90 days triamcinolone acetonide 0.1% 1 appl topical BID PRN Is last menstrual period known: Yes Last menstrual period: 04/30/21 Do you need a note to return to daycare/school/sports/work: No HPI Comments Details: Patient is a postmenopausal woman presenting for her new patient annual manpower development advisor examination. She is doing well with manpower development advisor concerns: she reports extreme stress with history of dense and cystic breast, and previous biopsies. Menses spacing out this year for several months, not experiencing hot flashes, more cold stress. Admits to ADHD symptoms and anxiety uses CBD to help w/sleep. She has practiced mindful techniques. Currently sexually active, had vasectomy. Denies any vaginal dryness or irritation. STI testing offered; she declines. Attempting to eat a healthy diet with calcium and vitamin D and stays active with exercise. Last pap smear; unknown date, negative. Last mammogram; not up to date. Plans Cologard. Denies any family history of breast, ovarian or colon cancer. [facility] Medical History Dense breast Pre-eclampsia GERD (gastroesophageal reflux disease) Sinusitis Asthma Surgical History History of cholecystectomy Family History Father Substance abuse FH: mental illness Asthma High blood pressure Cardiovascular disease Psychiatric disorder Mother High blood pressure Maternal Grandmother Diabetes Paternal Grandmother Diabetes Paternal Grandfather Cardiovascular disease Social History Housing: House Patient Tobacco Use Status: Never used Tobacco e-Cigarette/Vaping Use: Never Used Second Hand Smoke Exposure: Yes service: No Current occupational status: employed 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 Review of Systems Const All systems reviewed & are unremarkable except as noted in HPI and below Reports as per HPI Eyes Reports no additional complaints ENT Reports no additional complaints Card Reports no additional complaints Resp Reports no additional complaints GI Reports as per HPI and Reports no additional complaints Reports as per HPI Musc Reports no additional complaints Skin/Breast Reports as per HPI Neuro Reports no additional complaints Psych Reports no additional complaints Endo Reports no additional complaints Isrrael/Lymph Reports no additional complaints Aller/Immun Reports no additional complaints Physical Exam Vital Signs: Last Vital Signs BP 128/82 05/08/25 14:55 BMI result Body Mass Index 26.6 Const General: cooperative, healthy appearing, no acute distress, well developed and alert Orientation/consciousness: patient oriented x3 HEENT Head: Yes normal to inspection Eyes General: appearance normal, both eyes and all related structures Neck Neck: Yes normal visual inspection Thyroid: Thyroid normal Chest Chest palpation & inspection: normal inspection of the chest and other (no puckering, dimpling, peau de orange, retraction, discharge, masses) Breast/axilla inspection: normal inspection of the breasts Breast/axilla palpation: normal palpation of the breasts Resp Effort & Inspection: normal respiratory effort GI Inspection: Yes normal to inspection Palpation (GI): Soft to palpation Rectal Exam - Female: deferred General: Yes bladder normal to palpation External Female Exam: normal external appearance and normal appearance of the urethra Speculum Exam - Vagina: normal appearance of the vagina, normal palpation and normal vaginal discharge Speculum Exam - Cervix: normal appearance of the cervix, normal palpation and Other cervical findings present (Posterior to the left) Bimanual exam- vagina & uterus: normal bimanual exam, normal palpation, uterine size normal, bladder normal to palpation, normal palpation and non-tender Bimanual Exam- Adnexa, other: no masses Skin General skin exam: no rashes or lesions noted Rashes: no rashes Neuro General: patient oriented x3 Cognition (Neuro): normal cognition Extrem General: Yes normal to inspection Psych Attitude: cooperative Thought process: Normal thought process present Assessment & Plan Assessment & Plan (1) Dense breast: Code(s): R92.30 - Dense breasts, unspecified Category: Medical Plan: Referral placed to breast surgeons for consult and recommendations. The patient expressed understanding and agreement with the plan of care. All of her questions and concerns were addressed to the best of my ability. (2) Encounter for well woman exam with routine gynecological exam: Code(s): Z01.419 - Encounter for gynecological examination (general) (routine) without abnormal findings Category: Medical Plan Discussed: Current recommendations for pap smears per ASCCP guidelines. Pap obtained. Breast awareness, periodic self breast exams and yearly mammogram. Maintain a healthy lifestyle, well balanced diet including Calcium 1,200 mg and Vitamin D 600 IU daily, and routine exercise. Menopause verses perimenopause. Menopause is definitive of 1 year of no menses or 12 months in succession. Report any abnormal uterine bleeding in example prolonged episodes, or short intervals less than 24 days. Menopause.org handout information on Maynor Lindo MD sleep pod cast provided. Patient verbalizes understanding and agrees to the plan of care. She was given opportunity to ask questions and all questions were answered to the best of my ability. RTO in 1 year for annual manpower development advisor exam. This note is constructed using voice recognition software. While every effort has been made to ensure accuracy, ward helper errors may have been included. Orders: Orders HPV High risk Today Z00.00 - Encounter for general adult medical examination without abnormal findings Pap Smear Today Z00.00 - Encounter for general adult medical examination without abnormal findings Referrals Breast Surgery Referral R92.30 - Dense breasts, unspecified Coding Level of Care Code New Pt Prev Care 40-64y(31389) Diagnoses Dense breast R92.30 Encounter for well woman exam with routine gynecological exam Z01.419
[2025-05-08 14:55] VITALS: BP 128/82; BMI 26.6
--- OUTSIDE RECORDS SUMMARY | 2025-05-08 15:12 | XMS_ITS | Patient Health Record ---
Author Organization [facility] Address [address] [place] [address] Support Name Relationship Address Phone TAMEKA LOZA Guarantor Unknown [phone] Reason For Referral No Information Medications Medication SIG (Take, Route, Fr equency, Duration) Notes Start Date End Date Status Claritin 10 MG 1 ORAL daily; Duration: -3 Johnnie-MJ 03/09/20 12 Active Kariva 0.15-0.02/0.01 1 ORAL daily; Duration: -3 Johnnie-MJ 0 03/09/2012 Active Multivitamins 1 ORAL daily; Duration: -3 Johnnie-MJ 2 Active Problems Problem Type SNOMED Code ICD Code Onset Dates Problem Status W/U Status Risk Notes Problem Hyperlipidemia (26335080) Other and unspecified hyperlipidemia (272.4) Active confirmed Major Problem Benign essential hypertension (6145721) Essential hypertension, benign (401.1) Active confirmed Major Problem Occlusion of cerebral artery (disorder) (43196784) Unspecified cerebral artery occlusion without mention of cerebral infarction (434.90) Active confirmed Major Problem Abnormal vaginal bleeding (977624554) Other disorder of menstruation and other abnormal bleeding from female genital tract (626.8) Active confirmed Diag Problem Menopausal symptom (08691616) Symptomatic menopausal or female climacteric states (627.2) Active confirmed Major Problem Gynecological examination normal (996743801718016) Routine gynecological examination (V72.31) Active confirmed Major Problem Screening for malignant neoplasm of colon (395600686) Special screening for malignant neoplasms, colon (V76.51) Active confirmed Major Plan Of Treatment No Information Insurance Providers Payer Name Payer Address Payer Phone Subscriber Number Group Number Insured Name Patient Relationship to Insured Coverage Start Date Coverage End Date [facility] [address] [place] [address] [id number] RICKIE LOZA Spouse - patient is the spouse of the insured 2
--- OUTSIDE RECORDS SUMMARY | 2025-05-08 15:12 | XMS_ITS | Data Portability ---
Author Organization [place] [facility],, CLARA FISHER MD Address [address] [place] [address] Care Team Providers Care Treating Machine Operator Name Role Phone RUSLAN CALDERON Primary Care Provider [phone] Assessment No assessment recorded. Plan of Treatment Reminders Order Date Submit Date Provider Last Modified By Organization Details Last Modified Time Details Appointments None recorded. Lab pap test, thinprep, cervical 2016 017 [facility], Cytopathology Service, [address] [place], [address], 7 12:00:38 cytology, Pap smear 2012 013 [facility], Cytopathology Service, [address] [place], [address], 3 05:14:37 Referral None recorded. Procedures None recorded. Surgeries None recorded. Imaging MAMMO, screening , digital, bilateral 2016 017 [facility] (Mammography), [address] [place], [address], 7 11:12:00 Medication Orders Kariva (28) 0.15 mg-0.02 mg (21)/0.01 mg (5) tablet 2012 013 [email or web address], [address] [place], [address], 7 11:12:14 Patient TargetsNo targets recorded. Patient [...] then she will contact us and we marketing communication manager order a pelvic sonogram for further [...] to pharmacy. Not available 04/09/2013 11:43:40 05/11/2017 84810 breast self-exam : care instructions [email or web address] Not available 05/11/2017 12:02:21 She is here for annual exam, is doing well. 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 Using condoms for control, does not want any other form of bc. considering vasectomy. Baseline mammo ordered. she has not been here in 4 years, has not had any seed buyer problems. She did have her gallbladder out [...] Detail LastModifiedTime 04/09/20 13 04/09/2013 pap1c ase [id number] thinp rep Pap and cell block : [...] at the above addre ss. Not Available [facility], Cytopathology Service [address] [place], [address], 04/18/2013 10:01:22 05/11/20 17 05/11/2017 pap, LB [id number] ThinP rep Pap, Image d: NEGAT BRUNA [...] PAP ASCUS WITH HPV Z12.4 Not Available [facility], Cytopathology Service [address] [place], [address], 05/13/2017 12:00:38 05/27/2005/27/2017 MAMMO , obie moodyg, digit al, bilat eral No observ ation record ed. [email or web address] [address] [place], [address], 05/27/2017 13:05:34 06/09/2006/0906/09/2017 US, kt t No observ ation record ed. [facility] [address] [place], [address], 06/10/2017 09:32:55 06/09/20 17 06/09/2017 MAMMO , diagn ostic , digit al, unila teral No observ ation record ed. [facility] [address] [place], [address], 06/10/2017 09:32:55 06/22/20 17 06/22/2017 ultra sound guide d core biops y (PROC ) No observ ation record ed. [facility] (Mammography) [address] [place], [address], 06/24/2017 11:58:19 Result Notes None recorded. Problems Name Problem SNOMED Code Status Onset Date Resolution Date Notes Provider Name and Address Organization Details Recorded Time Oligoovulator y dysfunctional uterine bleeding 565430024 Active Not Available [facility] 3 03:01:03 Problem Notes None recorded. Procedures Surgical History Date Name Laterality Status Provider Name and Address Organization Details Recorded Time 05/25/20 16 Cholecystectomy completed Suzy Cobian in [facility], 05/11/2017 11:15:55 10/24/19 00 Caesarean Section completed Suzy Cobian in [facility], 03/27/2012 11:14:11 Imaging Results None recorded. Procedure Notes None recorded. Medical Equipment None Reported. Allergies Allergen ID Allergen Name Allergen Category Reaction Reaction Severity Criticality Documentation Date Start Date Code Code System Note Provider Name and Address Organization Details Recorded Time 73746 procaine hydrochlo ride medicatio n facial swelling Not available Not available 05/11/2017 50767 8 RxNorm SHAZIA Ford in [facility], 7 11:10:46 Medications Name Sig Start [...] Body mass index (BMI) Heart rate Systolic And Diastolic Provider Name and Address Organization Details Last Updated DateTime 03/27/2012 170.18 cm 54716.30 128 g 22.6 kg/m2 94 /min 146/92 mm[Hg] Suzy Cobian in [facility], 03/27/2012 11:32:07 Date Recorded Heart rate Body height Body weight Body mass index (BMI) Heart rate Systolic And Diastolic Systolic And Diastolic Provider Name and Address Organization Details Last Updated DateTime 3 108 /min 167.64 cm 83138.3 75995 g 23.9 kg/m2 99 /min 140/96 mm[Hg] 157/91 mm[Hg] Yaquelin Cobian in [facility], 3 11:09:41 Date Recorded Body weight Body mass index (BMI) Body height Heart rate Systolic And Diastolic Provider Name and Address Organization Details Last Updated DateTime 05/11/2017 28853.72 g 25.4 kg/m2 167.64 cm 98 /min 157/96 mm[Hg] Suzy Cobian in [facility], 05/11/2017 11:11:15 Social History Question Answer Notes LastModified by Organizat ion Details LastModified Time Tobacco Smoking Status Never Smoker Not Available [facility] 08/26/2020 03:19:42 What Is Your Level Of Caffeine Consumption? Moderate [id number] Information not available 08/26/2020 What Type Of Diet Are You Following? REGULAR [id number] Information not available 08/26/2020 Which Illicit Or Recreational Drugs Have You Used? None [id number] Information not available 08/26/2020 Do You Reside In Or Have You Traveled To An Area Where Ebola Virus Transmission Is Active? No [id number] Information not available 08/26/2020 Education 4 Year [...] available 03/27/2012 Are You Sexually Active? Yes [id number] Information not available 08/26/2020 How Much Tobacco Do You Smoke? No [id number] Information not available 08/26/2020 General Stress Level Medium Information not available 05/11/2017 Have You Recently (within The Last 12 Weeks, Or During A Current ) Traveled To Or Lived In A Zika-affected Area? No Information not available 05/11/2017 Sex: Unknown Functional Status Question Answer Note LastModified by Organizat ion Details LastModified Time What is your level of alcohol consumption? 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 Moderate [id number] Information not available 08/26/2020 Mental Status None recorded. Family History Relationship Description Onset Age of this Age Resolved Age Notes LastModified by Organization Details LastModified Time Father Heart disease previo usly record ed as Heart Proble m [id number] Not available 08/12/2013 03:00:58 Medical History Condition Response Anesthesia complications N High Blood Pressure N Candidate for MyRisk panel N Autoimmune Condition N Kidney or Bladder Problems N Thyroid Problems N Depression N Lung Disease N GI Problems N Defects or Inherited Disease N Anemia [...] and Address Organization Details Recorded Time influenza, M7J3-5247 1 completed Clara Fisher MD [address], [place], [address], [place] - [facility], 03/27/2012 11:56:27 Influenza, split virus, quadrivalent, preservative 6 completed Suzy cantrell [place] [facility], 05/11/2017 11:12:59 Past Encounters Encounter ID Performer Location Encounter Start Date Encounter Closed Date Diagnosis/Indication Diagnosis SNOMED-CT Code Diagnosis ICD10 Code Diagnosis Note [id number] MD CLARA Valerio MD [address] [place] [address] 03/27/2012 10:52:24 03/27/2012 14:28:14 [id number] MD CLARA Valerio MD [address] [place] [address] 04/09/2013 09:52:36 04/09/2013 13:05:08 [id number] MD CLARA Valerio MD [address] [place] [address] 05/11/2017 10:59:16 05/11/2017 11:58:04 Specialized medical examination 57788195 Z01.419 Screening mammography 24 814958 Z12.31 Health Concerns Section Related Observation LastModified by Organization Detai ls LastModified Time None Recorded Concern Status LastModified by Organization Details LastModified Time None Recorded Advance Directives Directive None Recorded Payers Insurance Date Sequence Insurance Name Policy Number Policy Clark Covered Member ID Clark Member ID Guarantor Name 05/11/2017 1 [facility] [id number] Jordon Merida [id number] Ashtyn Merida 05/11/2017 1 [facility] [id number] Jordon Merida [id number] Ashtyn Merida Notes Date Note Type Note Provider Name and Address Organization Details Recorded Time 05/11/2017 text/html She is here for annual exam, is doing well. 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 Using condoms for control, does not want any other form of bc. she has not been here in 4 years, has not had any seed buyer problems. She did have her gallbladder out in the interim. She has a 17 year old daughter, after she goes to college she will have a lot more free time. Clara Fisher MD [address], [place], [address], [place] [facility], 05/11/2017 11:53:08 OBGyn Episode No OBEpisode recorded.
== END 2025-05-08 16:09 | disposition home or self-care (01) ==
LOC: HO.HWS 14:32
PROVIDERS: PCP Nurse Practitioner Family; Visit Provider Advanced Practice Midwife
DX: Z01.419 Encounter for gynecological examination (general) (routine) without abnormal findings (principal); R92.30 Dense breasts, unspecified
CPT/HCPCS: 99386; 99459

== ENCOUNTER 2025-07-22 14:51 | Outpatient (AMB) | payer OTHER, SELFPAY ==
--- NOTE | 2025-07-22 14:57 | A.OFFPC_ITS ---
Vital Signs 07/22/25 15:00 07/22/25 15:20 Height 5 ft 7 in Weight 174 lb 4 oz BMI 27.3 BP 141/91 H 136/84 Blood Pressure Location Lt brachial Lt brachial Position Sitting Sitting Respiration 16 Pulse 78 Pulse Source Pulse Oximeter Temp 98.1 F Temp Source Oral Pulse Oximetry (%) 100 Oxygen Delivery Method Room Air Intake Visit Reasons: 3 mos HTN Intake Note: patient here for 3 month follow up on HTN [employer] Required: No Is last menstrual period known: Yes Last menstrual period: 07/02/25 Post menopausal: No Patient : No Allergies bee pollen (bee stings) Allergy (Intermediate, Verified 07/22/25 15:17) Angioedema mepivacaine Allergy (Intermediate, Verified 07/22/25 15:17) Facial Swelling Medication List - Last Reconciled 07/22/25 by Kelby Robin CNP albuterol sulfate 90 mcg/actuation 2 puffs inhalation Q4-6H PRN epinephrine (EpiPen) 0.3 mg (0.3 mL) IM Q10M PRN metoprolol tartrate 50 mg PO Q12H 90 days metoprolol tartrate 25 mg PO Q12H 90 days triamcinolone acetonide 0.1% 1 appl topical BID PRN Tobacco use date assessed: 07/22/25 Dental Screening Dental Screen Date: 07/22/25 Did you have a dental visit in the last 12 months?: Yes Did you have a dental problem in the last 6 months where you did not have access to dental care?: No Was dental information given to patient?: Patient has dentist HPI HPI Comments History of Present Illness Details 50-year-old female presents for hyperten lloyd follow-up. She admits to taking her medications as prescribed without adverse reactions. She has been making healthy dietary choices, including low salt. She offers no complaints and denies acute symptoms at this time. [facility] Medical History Dense breast Pre-eclampsia GERD (gastroesophageal reflux disease) Sinusitis Asthma Surgical History History of cholecystectomy Family History Father Substance abuse FH: mental illness Asthma High blood pressure Cardiovascular disease Psychiatric disorder Mother High blood pressure Maternal Grandmother Diabetes Paternal Grandmother Diabetes Paternal Grandfather Cardiovascular disease Social History Housing: House Patient Tobacco Use Status: Never used Tobacco e-Cigarette/Vaping Use: Never Used Second Hand Smoke Exposure: Yes Patient : No service: No Current occupational status: employed 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 Current occupational exposures/hazards: No Cognitive needs: No Hearing needs: No Vision needs: No Female Reproductive History Menstrual Date of last menstrual period: 07/02/25 Questionnaire Thrive Questionnaire Date Thrive assessed: 12/07/24 I am a: Patient What is your living situation today?: I have a steady place to live Within the past 12 months, did the food you bought not last and you didn't have the money to get more?: Never true Within the past 12 months, did you worry whether your food would run out before you got money to buy more?: Never true Do you have trouble paying for medicines?: No Do you have trouble getting transportation to medical appointments?: No Do you have trouble paying your heating and electricity bill?: No Do you have trouble taking care of your child, family member or friend?: No Do you have trouble with day-to-day activities such as bathing, preparing meals, shopping, managing finances, etc.?: No Are you currently unemployed and looking for a job?: No Are you interested in more education?: No Please select the resources that you would like help with: None Currently or been in a relationship where the following occur: No concerns reported THRIVE Score: 0 STEFAN-7 AMB Questionnaire STEFAN-7 Date STEFAN - 7 assessed: 12/10/24 Source: Developed by Drs. Sascha Felix, Morelia Aquino, Dat Madden and colleagues, with an educational nitin from [employer]. Review of Systems Const Details: Const Denies chills, Denies fatigue, Denies fever(s), Denies headache(s) and Denies weakness ENT Denies dizziness and Denies headache(s) Card Denies chest pain, Denies lightheadedness, Denies dyspnea and Denies other (Palpitations) Resp Denies cough, Denies dyspnea, Denies wheezing and Denies other ( shortness of breath) GI Denies abdominal pain, Denies melena, Denies hematochezia, Denies change in bowel habits, Denies dyspepsia and Denies nausea Denies hematuria and Denies dysuria Musc Denies abnormal gait, Denies myalgias, Denies arthralgias, Denies numbness and Denies tingling Skin/Breast Denies rash, Denies unusual bruising and Denies wounds Neuro Denies abnormal gait, Denies dizziness, Denies headache(s), Denies memory loss, Denies numbness, Denies Sensory deficit (Neuro), Denies tingling and Denies weakness Psych Denies anxiety, Denies depression, Denies memory loss Endo Denies cold intolerance, Denies fatigue, Denies heat intolerance, Denies polydipsia and Denies polyuria Aller/Immun Denies wheezing Physical exam (Primary Care) Vital Signs: Last Vital Signs Temp 98.1 F 07/22/25 15:00 Pulse 78 07/22/25 15:00 Resp 16 07/22/25 15:00 BP 141/91 H 07/22/25 15:00 Pulse Ox 100 07/22/25 15:00 Oxygen Delivery Method Room Air 07/22/25 15:00 BMI result Body Mass Index 27.3 Tobacco/Smoking Status: Tobacco use Status Tobacco use date assessed 07/22/25 07/22/25 15:02 Patient Tobacco Use Status Never used Tobacco 07/22/25 15:02 e-Cigarette/Vaping Use Never Used 07/22/25 15:02 Thrive Assessment: Date of Thrive Assessment Date Thrive assessed 12/07/24 07/22/25 15:02 Currently or been in a relationship where the following occur: No concerns reported Const Other: General: no acute distress and well developed Nutritional Appearance: well nourished Orientation/consciousness: patient oriented x3 HENMT Head: Yes normocephalic and Yes atraumatic Eyes General: appearance normal, both eyes and all related structures Pupils: Equal, round and reactive pupils present EOM: EOMs intact bilaterally Resp Effort & Inspection: normal respiratory effort Auscultation: clear to auscultation bilaterally Cardio Rate: regular rate Rhythm: regular rhythm Heart sounds: S1 normal heart sound present, S2 normal heart sound present, no gallops, no murmurs and no rubs GI Palpation (GI): No Abdominal aortic bruit present, Soft to palpation, nontender, No hepatosplenomegaly present and No Rebound tenderness present Auscultation: normal bowel sounds General: Yes no CVA tenderness Back/Spine/Pelvis Back: no CVA tenderness Cervical Spine: cervical ROM normal and No Cervical spine tenderness Thoracic/Lumbar Spine: thoraco-lumbar ROM normal, No pain with thoraco-lumbar ROM, No thoracic spinal tenderness and No lumbar spinal tenderness Extrem General: Yes normal to inspection, No edema and No calf tenderness Skin General: warm and dry. Normal skin color. Normal skin turgor Neuro General: patient oriented x3, gait normal and no focal neuro deficit Cranial nerves: Yes Equal, round and reactive pupils present Cognition (Neuro): normal cognition Gait exam (Neuro): Normal gait present Sensory Exam: No Sensory deficit (Neuro) Psych Appearance: grossly normal Affect: normal affect Attitude: cooperative Thought process: Normal thought process present Coding Level of Care Code Est Pt Level 3 (73405) Diagnoses Hypertension I10 Assessment & Plan Assessment & Plan (1) Hypertension: Code(s): I10 - Essential (primary) hypertension Category: Medical Plan: Resting blood pressure is 136/84, within goal of less than 140/90. Continue current treatment regimen. Low-sodium diet encouraged. Follow-up in 3 months or sooner with symptoms or concerns. Verbalized understanding and agreed with the plan.
[2025-07-22 15:00] VITALS: BP 141/91; PULSE 78; RESP 16; TEMP 36.7; O2SAT 100; BMI 27.3
[2025-07-22 15:20] VITALS: BP 136/84
--- OUTSIDE RECORDS SUMMARY | 2025-07-22 16:46 | XMS_ITS | Patient Health Record ---
Author Organization [facility] Address [address] [place] [address] Support Name Relationship Address Phone TAMEKA LOZA Guarantor Unknown [phone] Reason For Referral No Information Medications Medication [...] Status W/U Status Risk Notes Problem Hyperlipidemia (72853224) Other and unspecified hyperlipidemia (272.4) Active confirmed Major Problem Benign essential hypertension (4630861) Essential hypertension, benign (401.1) Active confirmed Major Problem Occlusion of cerebral artery (disorder) (97860486) Unspecified cerebral artery occlusion without mention of cerebral infarction (434.90) Active confirmed Major Problem Abnormal vaginal bleeding (283768376) Other disorder of menstruation and other abnormal bleeding from female genital tract (626.8) Active confirmed Diag Problem Menopausal symptom (10801780) Symptomatic menopausal or female climacteric states (627.2) Active confirmed Major Problem Gynecological examination normal (137489440442996) Routine gynecological examination (V72.31) Active confirmed Major Problem Screening for malignant neoplasm of colon (795953866) Special screening for malignant neoplasms, colon (V76.51) Active confirmed Major Plan Of Treatment No Information Insurance Providers Payer Name Payer Address Payer Phone Subscriber Number Group Number Insured Name Patient Relationship to Insured Coverage Start Date Coverage End Date [facility] [address] [place] [address] [phone] [id number] RICKIE LOZA Spouse - patient is the spouse of the insured 2
== END 2025-07-22 15:28 | disposition home or self-care (01) ==
LOC: HO.HMCFM 14:52
PROVIDERS: PCP Nurse Practitioner Family; Visit Provider Nurse Practitioner Family
DX: I10 Essential (primary) hypertension (principal)

== ENCOUNTER 2025-10-07 14:54 | Outpatient (AMB) | payer OTHER, SELFPAY ==
--- NOTE | 2025-10-07 15:00 | A.OFFPC_ITS ---
Vital Signs 10/07/25 15:04 10/07/25 15:18 Height 5 ft 7 in Weight 177 lb BMI 27.7 BP 140/80 H 130/80 Blood Pressure Location Lt brachial Lt brachial Position Sitting Sitting Respiration 16 Pulse 82 Pulse Source Pulse Oximeter Temp 97.1 F Temp Source Temporal Artery Scan Pulse Oximetry (%) 99 Oxygen Delivery Method Room Air Intake Visit Reasons: 3 mos HTN Intake Note: Ashtyn presents in the office today to follow up to hypertension. [employer] Required: No Is last menstrual period known: Yes Last menstrual period: 10/07/25 Post menopausal: No Patient : No Allergies bee pollen (bee stings) Allergy (Intermediate, Verified 10/07/25 15:15) Angioedema mepivacaine Allergy (Intermediate, Verified 10/07/25 15:15) Facial Swelling Medication List - Last Reconciled 10/07/25 by Kelby Robin CNP albuterol sulfate 90 mcg/actuation 2 puffs inhalation Q4-6H PRN epinephrine (EpiPen) 0.3 mg (0.3 mL) IM Q10M PRN metoprolol tartrate 50 mg PO Q12H 90 days metoprolol tartrate 25 mg PO Q12H 90 days triamcinolone acetonide 0.1% 1 appl topical BID PRN Tobacco use date assessed: 10/07/25 Dental Screening Dental Screen Date: 10/07/25 Did you have a dental visit in the last 12 months?: Yes Did you have a dental problem in the last 6 months where you did not have access to dental care?: No Was dental information given to patient?: Patient has dentist HPI HPI Comments History of Present Illness Details 50-year-old female presents for hyperten lloyd follow-up. She admits to taking her medications as prescribed without adverse reactions. She has been making healthy dietary choices, including low salt. She offers no complaints and denies acute symptoms at this time. [facility] Medical History Dense breast Pre-eclampsia GERD (gastroesophageal reflux disease) Sinusitis Asthma Surgical History History of cholecystectomy Family History Father Substance abuse FH: mental illness Asthma High blood pressure Cardiovascular disease Psychiatric disorder Mother High blood pressure Maternal Grandmother Diabetes Paternal Grandmother Diabetes Paternal Grandfather Cardiovascular disease Social History Housing: House Alcohol intake: current Patient Tobacco Use Status: Never used Tobacco e-Cigarette/Vaping Use: Never Used Second Hand Smoke Exposure: Yes service: No Current occupational status: employed 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 Current occupational exposures/hazards: No Cognitive needs: No Hearing needs: No Vision needs: No Female Reproductive History Menstrual Date of last menstrual period: 10/07/25 Questionnaire Thrive Questionnaire Date Thrive assessed: 12/07/24 I am a: Patient What is your living situation today?: I have a steady place to live Within the past 12 months, did the food you bought not last and you didn't have the money to get more?: Never true Within the past 12 months, did you worry whether your food would run out before you got money to buy more?: Never true Do you have trouble paying for medicines?: No Do you have trouble getting transportation to medical appointments?: No Do you have trouble paying your heating and electricity bill?: No Do you have trouble taking care of your child, family member or friend?: No Do you have trouble with day-to-day activities such as bathing, preparing meals, shopping, managing finances, etc.?: No Are you currently unemployed and looking for a job?: No Are you interested in more education?: No Please select the resources that you would like help with: None Currently or been in a relationship where the following occur: No concerns reported THRIVE Score: 0 STEFAN-7 AMB Questionnaire STEFAN-7 Date STEFAN - 7 assessed: 12/10/24 Source: Developed by Drs. Sascha Felix, Morelia Aquino, Dat Madden and colleagues, with an educational nitin from [employer]. Review of Systems Const Details: Const Denies chills, Denies fatigue, Denies fever(s), Denies headache(s) and Denies weakness ENT Denies dizziness and Denies headache(s) Card Denies chest pain, Denies lightheadedness, Denies dyspnea and Denies other (Palpitations) Resp Denies cough, Denies dyspnea, Denies wheezing and Denies other ( shortness of breath) GI Denies abdominal pain, Denies melena, Denies hematochezia, Denies change in bowel habits, Denies dyspepsia and Denies nausea Denies hematuria and Denies dysuria Musc Denies abnormal gait, Denies myalgias, Denies arthralgias, Denies numbness and Denies tingling Skin/Breast Denies rash, Denies unusual bruising and Denies wounds Neuro Denies abnormal gait, Denies dizziness, Denies headache(s), Denies memory loss, Denies numbness, Denies Sensory deficit (Neuro), Denies tingling and Denies w eakness Psych Denies anxiety, Denies depression, Denies memory loss Endo Denies cold intolerance, Denies fatigue, Denies heat intolerance, Denies poly dipsia and Denies polyuria Aller/Immun Denies wheezing Physical exam (Primary Care) Tobacco/Smoking Status: Tobacco use Status Tobacco use date assessed 07/22/25 10/07/25 15:03 Patient Tobacco Use Status Never used Tobacco 10/07/25 15:03 e-Cigarette/Vaping Use Never Used 10/07/25 15:03 Thrive Assessment: Date of Thrive Assessment Date Thrive assessed 12/07/24 10/07/25 15:03 Currently or been in a relationship where the following occur: No concerns reported Const Other: General: no acute distress and well developed Nutritional Appearance: well nourished Orientation/consciousness: [facility]: Yes normocephalic and Yes atraumatic Eyes General: appearance normal, both eyes and all related structures Pupils: Equal, round and reactive pupils present EOM: EOMs intact bilaterally Resp Effort & Inspection: normal respiratory effort Auscultation: clear to auscultation bilaterally Cardio Rate: regular rate Rhythm: regular rhythm Heart sounds: S1 normal heart sound present, S2 normal heart sound present, no gallops, no murmurs and no rubs Extrem General: Yes normal to inspection, No edema and No calf tenderness Skin General: warm and dry. Normal skin color. Normal skin turgor Neuro General: patient oriented x3, gait normal and no focal neuro deficit Psych Appearance: grossly normal Affect: normal affect Attitude: cooperative Thought process: Normal thought process present Coding Level of Care Code Est Pt Level 3 (95617) Diagnoses Hypertension I10 Assessment & Plan Assessment & Plan (1) Hypertension: Code(s): I10 - Essential (primary) hypertension Category: Medical Plan: Resting blood pressure is 130/80, within goal of less than 140/90. Continue current treatment regimen. Low-sodium diet encouraged. Follow-up in 1-2 months for transfer of care with a new provider within the practice. Return sooner with symptoms or concerns. Verbalized understanding and agreed with the plan.
[2025-10-07 15:04] VITALS: BP 140/80; PULSE 82; RESP 16; TEMP 36.2; O2SAT 99; BMI 27.7
[2025-10-07 15:18] VITALS: BP 130/80
--- OUTSIDE RECORDS SUMMARY | 2025-10-07 21:28 | XMS_ITS | Patient Health Record ---
Author Organization [facility] Address [address] [place] [address] Support Name Relationship Address Phone TAMEKA LOZA Guarantor Unknown [phone] Reason For Referral No Information Medications Medication [...] Status W/U Status Risk Notes Problem Hyperlipidemia (75701724) Other and unspecified hyperlipidemia (272.4) Active confirmed Major Problem Benign essential hypertension (7557957) Essential hypertension, benign (401.1) Active confirmed Major Problem Occlusion of cerebral artery (disorder) (87825776) Unspecified cerebral artery occlusion without mention of cerebral infarction (434.90) Active confirmed Major Problem Abnormal vaginal bleeding (853334898) Other disorder of menstruation and other abnormal bleeding from female genital tract (626.8) Active confirmed Diag Problem Menopausal symptom (25642769) Symptomatic menopausal or female climacteric states (627.2) Active confirmed Major Problem Gynecological examination normal (183248188628417) Routine gynecological examination (V72.31) Active confirmed Major Problem Screening for malignant neoplasm of colon (338136105) Special screening for malignant neoplasms, colon (V76.51) Active confirmed Major Plan Of Treatment No Information Insurance Providers Payer Name Payer Address Payer Phone Subscriber Number Group Number Insured Name Patient Relationship to Insured Coverage Start Date Coverage End Date [facility] [address] [place] [address] [phone] [id number] RICKIE LOZA Spouse - patient is the spouse of the insured 2
--- OUTSIDE RECORDS SUMMARY | 2025-10-07 21:28 | XMS_ITS | Data Portability ---
Author Organization [place] [facility],, CLARA VINCENT MD Address [address] [facility] [address] [place] [address] Care Team Providers Care Spooling Operator Name Role Phone RUSLAN CALDERON Primary Care Provider Assessment No assessment recorded. Plan of Treatment Reminders Order Date Submit Date Provider Last Modified By Organization Details Last Modified Time Details Appointments None recorded. Lab pap test, thinprep, cervical 2016 017 [facility], Cytopathology Service, [address] [place], [address], 7 12:00:38 cytology, Pap smear 2012 013 [facility], Cytopathology Service, [address] [place], [address], 3 05:14:37 Referral None recorded. Procedures None recorded. Surgeries None recorded. Imaging MAMMO, screening , digital, bilateral 2016 017 [facility] (Mammography), [address] [place], [address], 7 11:12:00 Medication Orders Kariva (28) 0.15 mg-0.02 mg (21)/0.01 mg (5) tablet 2012 013 [email or web address], [address] [place], [address], 7 11:12:14 Patient TargetsNo targets recorded. Patient [...] then she will contact us and we social media marketing manager order a pelvic sonogram for further [...] to pharmacy. Not available 04/09/2013 11:43:40 05/11/2017 79986 breast self-exam : care instructions [email or web address] Not available 05/11/2017 12:02:21 She is here for annual exam, is doing well. 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 Using condoms for control, does not want any other form of bc. considering vasectomy. Baseline mammo ordered. 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 She did have her gallbladder out [...] Detail LastModifiedTime 04/09/20 13 04/09/2013 pap1c ase [id number] thinp rep Pap and cell block : [...] at the above addre ss. Not Available [facility], Cytopathology Service [address] [place], [address], 04/18/2013 10:01:22 05/11/20 17 05/11/2017 pap, LB [id number] ThinP rep Pap, Image d: NEGAT BRUNA [...] PAP ASCUS WITH HPV Z12.4 Not Available [facility], Cytopathology Service [address] [place], [address], 05/13/2017 12:00:38 05/27/2005/27/2017 MAMMO , obie moodyg, digit al, bilat eral No observ [facility]ion [facility] [address] [place], [address], 05/27/2017 13:05:34 06/09/2006/0906/09/2017 US, kt t No observ ation record ed. [facility] [address] [place], [address], 06/10/2017 09:32:55 06/09/20 17 06/09/2017 MAMMO , diagn ostic , digit al, unila teral No observ ation record ed. [facility] [address] [place], [address], 06/10/2017 09:32:55 06/22/20 17 06/22/2017 ultra sound guide d core biops y (PROC ) No observ ation record ed. [facility] (Mammography) [address] [place], [address], 06/24/2017 11:58:19 Result Notes None recorded. Problems Name Problem SNOMED Code Status Onset Date Resolution Date Notes Provider Name and Address Organization Details Recorded Time Oligoovulator y dysfunctional uterine bleeding [id number] Active Not Available [facility] 3 03:01:03 Problem Notes None recorded. Procedures Surgical History Date Name Laterality Status Provider Name and Address Organization Details Recorded Time 05/25/20 16 Cholecystectomy completed Suzy Cobian in [facility], 05/11/2017 11:15:55 10/24/19 00 Caesarean Section completed Suzy Cobian in [facility], 03/27/2012 11:14:11 Imaging Results None recorded. Procedure Notes None recorded. Medical Equipment None Reported. Allergies Allergen ID Allergen Name Allergen Category Reaction Reaction Severity Criticality Documentation Date Start Date Code Code System Note Provider Name and Address Organization Details Recorded Time 98261 procaine hydrochlo ride medicatio n facial swelling Not available Not available 05/11/2017 82635 8 RxNorm SHAZIA Ford in [facility], 7 11:10:46 Medications Name Sig Start Date [...] Details Last Updated DateTime 03/27/2012 170.18 cm 25835.30 128 g 22.6 kg/m2 94 /min 146/92 mm[Hg] Suzy Cobian in [facility], 03/27/2012 11:32:07 Date Recorded Heart rate Body height Body weight Body mass index (BMI) Heart rate Systolic And Diastolic Systolic And Diastolic Provider Name and Address Organization Details Last Updated DateTime 3 108 /min 167.64 cm 60419.3 63391 g 23.9 kg/m2 99 /min 140/96 mm[Hg] 157/91 mm[Hg] Yaquelin Cobian in [facility], 3 11:09:41 Date Recorded Body weight Body mass index (BMI) Body height Heart rate Systolic And Diastolic Provider Name and Address Organization Details Last Updated DateTime 05/11/2017 22006.72 g 25.4 kg/m2 167.64 cm 98 /min 157/96 mm[Hg] Suzy Cobian in [facility], 05/11/2017 11:11:15 Social History Question Answer Notes LastModified by Organizat ion Details LastModified Time Tobacco Smoking Status Never Smoker Not Available [facility] 08/26/2020 03:19:42 What Is Your Level Of Caffeine Consumption? Moderate [id number] Information not available 08/26/2020 What Type Of Diet Are You Following? REGULAR [id number] Information not available 08/26/2020 Which Illicit Or Recreational Drugs Have You Used? None [id number] Information not available 08/26/2020 Do You Reside In Or Have You Traveled To An Area Where Ebola Virus Transmission Is Active? No [id number] Information not available 08/26/2020 Education 4 Year [...] available 03/27/2012 Are You Sexually Active? Yes [id number] Information not available 08/26/2020 How Much Tobacco Do You Smoke? No [id number] Information not available 08/26/2020 General Stress Level Medium Information not available 05/11/2017 Have You Recently (within The Last 12 Weeks, Or During A Current ) Traveled To Or Lived In A Zika-affected Area? No Information not available 05/11/2017 Sex: Unknown Functional Status Question Answer Note LastModified by Organizat ion Details LastModified Time What is your level of alcohol consumption? 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 Moderate [id number] Information not available 08/26/2020 Mental Status None recorded. Family History Relationship Description Onset Age of this Age Resolved Age Notes LastModified by Organization Details LastModified Time Father Heart disease previo usly record ed as Heart Proble m [id number] Not available 08/12/2013 03:00:58 Medical History Condition Response Anesthesia complications N High Blood Pressure N Candidate for MyRisk panel N Autoimmune Condition N Thyroid Problems N Kidney or Bladder Problems N Depression N GI Problems N Lung Disease N Defects or Inherited Disease N Anemia N History of Ovarian Cancer N History of Breast Cancer N GINA exposure N BRCA testing in past N Osteopenia N Psychiatric Illness N Diabetes N Anxiety Disorder N Arthritis N Headaches or Migraines N [...] and Address Organization Details Recorded Time influenza, [id number] 1 completed Clara Vincent MD [email or web address], [place], [address], [place] [facility], 03/27/2012 11:56:27 Influenza, split virus, quadrivalent, preservative 6 completed Suzy cantrell [place] [facility], 05/11/2017 11:12:59 Past Encounters Encounter ID Performer Location Encounter Start Date Encounter Closed Date Diagnosis/Indication Diagnosis SNOMED-CT Code Diagnosis ICD10 Code Diagnosis IMO Codes Diagnosis Note [id number] MD CLARA Valerio MD [address] [facility] [place] [address] 03/27/2012 10:52:24 03/27/2012 14:28:14 [id number] MD CLARA Valerio MD [address] [facility] [place] [address] 04/09/2013 09:52:36 04/09/2013 13:05:08 [id number] MD CLARA Valerio MD [address] [facility] [place] [address] 05/11/2017 10:59:16 05/11/2017 11:58:04 Specialized medical examination 49245815 Z01.419 Screening mammography 24 591958 Z12.31 Health Concerns Section Related Observation LastModified by Organization Detai ls LastModified Time None Recorded Concern Status LastModified by Organization Details LastModified Time None Recorded Advance Directives Directive None Recorded Payers Insurance Date Sequence Insurance Name Policy Number Policy Clark Covered Member ID Clark Member ID Guarantor Name 05/11/2017 1 [place] [facility] [id number] Jordon Merida [id number] Ashtyn Merida 05/11/2017 1 [facility] [id number] Jordon Merida [id number] Ashtyn Merida Notes Date Note Type Note Provider Name and Address Organization Details Recorded Time 03/27/2012 text/html Abnormal BleedingReported by PatientHPIFor onset/timing, patient reportsevery cycle. For duration, patient reports<7 days/month. For quality, patient reportsspotting. For associated symptoms, patient reportsno dysmenorrhea,no pelvic pain,no abdominal pain,no dyspareunia,no fatigue,no dizziness,no anemia/iron supplements,no shortness of breath,no cp/palpitations,no bloating,no change in bowel function,no urinary symptoms,no pms,no vaginal discharge, andno vaginal itching/irritation.ROS as noted in the HPI Clara Vincent MD [address], [place], [address], [place] [facility], 03/27/2012 13:28:12 04/09/2013 text/html ROS as noted in the HPI Clara Vincent MD [address], [place], [address], [place] [facility], 04/09/2013 11:44:49 05/11/2017 text/html She is here for annual exam, is doing well. 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 Using condoms for control, does not want any other form of bc. 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 She did have her gallbladder out in the interim. She has a 17 year old daughter, after she goes to college she will have a lot more free time. Clara Vincent MD [address], [place], [address], [place] [facility], 05/11/2017 11:53:08 OBGyn Episode No OBEpisode recorded.
== END 2025-10-07 15:24 | disposition home or self-care (01) ==
LOC: HO.HMCFM 14:55
PROVIDERS: PCP Nurse Practitioner Family; Visit Provider Nurse Practitioner Family
DX: I10 Essential (primary) hypertension (principal)